=== PATIENT | male | born 1935 | race Caucasian/White ===

== ENCOUNTER 2017-05-22 04:25 | Inpatient (IN) | payer MEDICARE, SELFPAY ==
[2017-05-22] VITALS (20 sets, daily range): BP systolic 111–193; BP diastolic 62–86; PULSE 60–68; RESP 16–23; TEMP 36.2–36.9; O2SAT 94–97; BMI 30.4; BMI 29.8
--- NOTE | 2017-05-22 04:29 | EKG12_ITS ---
Test Reason : SOB Blood Pressure : / mmHG Vent. Rate : 059 BPM Atrial Rate : 059 BPM P-R Int : 256 ms QRS Dur : 124 ms QT Int : 468 ms P-R-T Axes : 000 021 024 degrees QTc Int : 463 ms Sinus bradycardia with 1st degree A-V block Septal infarct , age undetermined Abnormal ECG Confirmed by PILAR PANDA ([id number]), associate entertainment editor FARRAH ALVAREZ ([id number] on 05/24/2017 11:55:49 AM Referred By: KATIE Confirmed By:PILAR PANDA
--- NOTE | 2017-05-22 04:29 | RAD_ITS ---
STUDY: X-RAY CHEST REASON FOR EXAM: Male, 81 years old. Shortness of breath TECHNIQUE: PA and lateral COMPARISON: May 21, 2017 FINDINGS: There is bilateral perihilar pulmonary edema. There are NO effusions or pneumothoraces. Heart is borderline enlarged. Normal mediastinum and car. Normal visualized pulmonary arteries. Normal visualized aortic arch and descending thoracic aorta. Normal visualized thoracic spine. Normal visualized ribs, clavicles, and shoulders. There is no demonstrated abnormality of the visualized soft tissue structures of the upper abdomen. RAD/Chest PA and Lateral IMPRESSION: There is bilateral perihilar pulmonary edema. There are NO effusions or pneumothoraces. Heart is borderline enlarged. Electronically Signed: Arnulfo Marshall MD at 5:29 EST , Service support ,
--- NOTE | 2017-05-22 04:36 | ED.DCSUM_ITS ---
- ER Visit Summary Date of Service: 05/22/17 Chief Complaint: Shortness of breath History of Present Illness: The patient is a 81 M with history of hypertension, chronic kidney disease, prior NSTEMI, and CHF presents to the emergency department shortness of breath. Patient was actually seen here last night for similar symptoms. He was off of his antihypertensives for a while but his lisinopril was just restarted. Last night, per review of the records, the patient had some dizziness and mild dyspnea. His evaluation here was unremarkable. He was able to ambulate without hypoxia. Tonight, the patient woke with worsening shortness of breath. Squad was called. On squad arrival, the patient did have a pulse ox between 88 and 90% on room air. He denies cough. He denies any fevers or chills. He states he has been compliant with his medications. He has had no chest pain. Physical Examination: Vital signs reviewed General: Well-nourished, well-developed Head: Normocephalic, atraumatic Eyes: Pupils equal and reactive, extraocular muscles intact Neck, supple, no lymphadenopathy Heart: Regular rate and rhythm Respiratory: No distress, diminished in the bases without wheezing or rhonchi Abdomen: Soft, nontender, nondistended, no peritoneal signs Back: Nontender Extremities: Nontender, no edema, no cords Skin: Normal color no rash Neuro: Alert and oriented, no focal or lateralizing deficits Test Results: EKG demonstrates sinus rhythm with first-degree AV block. No acute ischemic change. Chest x-ray shows evidence of pulmonary edema. No effusion. Screening labs relatively unremarkable. Emergency Department Course and Treatment: Patient presents with shortness of breath. It has been waking him from sleep. I was actually able to get more history from the daughter when she arrived. This is the same it happened last night. He woke suddenly and felt like he could not breathe. He also is complaining of some dizziness. The patient does have a history of cardiomyopathy and NSTEMI. He was recently restarted on his lisinopril for his blood pressure. He denies any complaints, but I do feel the patient likely has some underlying dementia. He has really limited short-term recall. His EKG does not show anything ischemic. His cardiac enzymes continue to be normal. His chest x-ray shows increasing cephalization and more pulmonary edema today. With the patient's paroxysmal nocturnal dyspnea, worsening CHF, and borderline hypoxia I do feel that observation would be in his best interest. My suspicion is that he is likely having acute hypertensive spikes putting him into congestive heart failure. He will be started on low-dose Lasix and be admitted. As the patient does see Dr. Rosario in the outpatient, I did speak with Dr. Hong to make him aware of the patient's presentation. Treatment Plan: [] Disposition: Admission Impression: 1. New onset CHF 2. Dyspnea This note was generated with [employer] dictation software. It may contain incorrect words, spelling, and punctuation that were not noted in review of the chart prior to signing ED Disposition - Plan for ED Patient: Disposition: Acute Care Hospital [facility] Chief Complaint: Shortness of Breath
[2017-05-22 04:48] LABS: Absolute Lymphocyte Count 1.06 X10^3/ul (0.83-4.51); Absolute Neutrophil Count 4.1 X10^3/uL (2.0-7.7); Basophil# 0.01 X10^3/uL; Basophil% 0.2 % (0-1); Eosinophil# 0.18 X10^3/uL; Eosinophils% 3.1 % (0-5); Hematocrit 39.5 % (40-54); Hemoglobin 12.5 g/dl (13.0-16.5); Lymphocyte # 1.06 X10^3/ul (4.0); Lymphocyte % 18.2 % (19-41); Mean Corp Hgb Conc 31.6 g/gl (32-36); Mean Corpuscular Hgb 32.3 pg (27.0-32.0); Mean Corpuscular Volume 102.1 fL (80-94); Mean Platelet Vol. 11.5 fl (6.2-12.0); Monocyte# 0.47 X10^3/uL; Monocyte% 8.1 % (0-10); Neutrophil # 4.07 X10^3/uL (2.7-7.7); Neutrophil % 70.1 % (47-70); Platelet Count 150 K/mm3 (150-450); RBC Distribution Width CV 14.3 % (11.6-14.6); RBC Distribution Width SD 53.1 fl (35.1-43.9); Red Blood Count 3.87 M/mm3 (4.6-6.2); White Blood Count 5.8 K/mm3 (4.4-11.0)
[2017-05-22 04:50] LABS: POSITIVE COUNT NO; POSITIVE DIFFERENTIAL NO; POSITIVE MORPHOLOGY NO
[2017-05-22 05:05] LABS: Anion Gap 9 (5-15); BUN 47 mg/dL (7-18); BUN/Creat Ratio 16.4 RATIO (10-20); Calcium,Total 8.9 mg/dL (8.5-10.1); Chloride 107 mmol/L (98-107); Creatinine, Serum 2.87 mg/dL (0.70-1.30); EST Glomerular Filtration Rate 23 mL/min (>60); Est Glom Filt Rate - Afr Amer 27 mL/min (>60); Estimated Creatinine Clearance 19.19 ml/min; Glucose 163 mg/dL (70-110); Potassium 4.8 mmol/L (3.5-5.1); Sodium Level 140 mmol/L (136-145)
[2017-05-22 05:23] LABS: BNP,B-Type NATRIURETIC PEPTIDE 166.8 pg/mL (0-100)
[2017-05-22] MEDS: Furosemide 40 MG/4 ML Vial IV ×3 (05:41→17:54)
--- NOTE | 2017-05-22 06:06 | HP.PCM_ITS ---
Problem List (1) Dementia Status: Chronic (2) Hypertension Status: Chronic Qualifiers: Hypertension type: unspecified Qualified Code(s): I10 - Essential (primary ) hypertension (3) Renal failure Status: Chronic Qualifiers: Renal failure chronicity: unspecified chronicity Qualified Code(s): N19 - Unspecified kidney failure (4) Generalized weakness Status: Chronic (5) CHF (congestive heart failure) Status: Acute Qualifiers: Congestive heart failure type: unspecified Congestive heart failure chronicity: acute on chronic Qualified Code(s): I50.9 - Heart failure, unspecified History of Present Illness Date of Admission: 05/22/17 Chief Complaint: shortness of breath The patient is a 81 year old male patient with a significant past medical history of hypertension, chronic kidney disease, prior NSTEMI, and CHF presents to the ER for the second day in a row with shortness of breath. On arrival his pulse ox was 88%. He has not had an echocardiogram in over a year. He is followed by Dr Rosario. The patient is a poor historian due to dementia and his daughter had just stepped out of the room at the time of my evaluation so much of what I have learned comes from the chart and the ER physician. He denies cough or fevers and chills. He states he takes his medications as prescribed and denies chest pain presently. He was restarted on lisinopril recently for blood pressure. Of not is his creatine 2.87 of and his BNP of 166. Chest X-ray reveals bilateral pulmonary edema and he now requires oxygen to maintain his pulse oxygenation in the 90% range. He will be admitted for congestive heart failure. Past Medical History Past Medical History (Chronic Problems): Chronic Problems Generalized weakness (Chronic) Dementia (Chronic) Hypertension (Chronic) Renal failure (Chronic) Allergies cefadroxil Allergy (Unknown, Verified 05/22/17 04:31) Unknown fexofenadine HCl [From Rosa] Allergy (Unknown, Verified 05/22/17 04:31) Unknown erythromycin base Allergy (Verified 05/22/17 04:31) Unknown Home Medications: Ambulatory Orders Medication Instructions Recorded Simvastatin 40 mg PO QHS 08/02/14 Aspirin [Aspirin, Baby] 81 mg PO DAILY@0800 11/25/14 Amiodarone HCl [Cordarone] 200 mg PO DAILY 01/20/16 Ascorbic Acid [Vitamin C] 250 mg PO DAILY 11/03/17 Cholecalciferol (Vitamin D3) 4,000 unit PO DAILY 03/09/17 [Vitamin D3] Insulin Detemir [Levemir FlexPen] 22 - 30 units SC QHS 03/09/17 L.acidoph,Paracasei, B.lactis 1 each PO DAILY 03/09/17 [Probiotic] Ferrous Sulfate 2 tab PO DAILY 04/27/17 Pantoprazole Sodium [Protonix] 40 mg PO DAILY 04/27/17 Insulin Lispro [Humalog] See Protocol 05/21/17 Lisinopril [Zestril] 5 mg PO DAILY 05/21/17 Surgical History: appendectomy, - - Right leg vascular surgery-type unknown Smoking Status: Never smoker - *Family History Maternal History Items: No pertinent history Paternal History Items: No pertinent history Review of Systems Constitutional: Denies: Chills, Fever, Weight Change HEENT: Denies: Head Aches, Sinus Congestion, Sinus Drainage Cardiovascular: Denies: Chest Pain, Palpitations Respiratory: Reports: Shortness of breath at rest. Denies: Cough, Sputum production Gastrointestinal: Denies: Abdominal Pain, Nausea, Vomiting Genitourinary: Denies: Dysuria Musculoskeletal: Denies: Joint Pain, Joint Tenderness Skin: Denies: Rash, Wounds Neurological: Reports: Confusion, - - memory impaired. Denies: Focal weakness, Numbness, Tingling Psychiatric: Denies: Anxiety, Depression, Homicidal Ideations, Suicidal Ideations Hematologic/ Lymphatic: Denies: Easy Bruising, Easy Bleeding VTE Information - Inpt Only VTE Present on Admission: No VTE Mechan Device Prophylaxis: SCD's VTE Pharm Prophylaxis ordered?: No - Physical Exam General: Alert, Cooperative, Confused HEENT: Atraumatic, Normocephalic Neck: Supple Lungs: No rhonchi, No wheeze, No rales, Diminished Cardiovascular: Regular rate, Regular Rhythm, Normal S1, Normal S2, No murmurs Abdomen: Bowel Sounds Present, Soft, Non Tender, Obese Extremities: Edema - trace lower extremity edema Skin: No rashes, No breakdown Musculoskeletal: No Tenderness to Palpation of Joints or Extremities Neurological: Neuro grossly intact Psych/Mental Status: Normal Affect, Appropriate Vital Signs Temp Pulse Resp BP Pulse Ox 97.2 F L 60 17 176/72 H 97 05/22/17 04:26 05/22/17 05:46 05/22/17 05:46 05/22/17 05:46 05/22/17 05:46 Oxygen Flow Rate 2 Oxygen Delivery Method Nasal Cannula Weight: 194 lb 7.163 oz Body Mass Index (BMI) 30.4 Finger Stick Blood Glucose 215 Laboratory Tests Past 24 Hrs 05/22/17 05/22/17 05/22/17 04:30 04:30 04:30 WBC 5.8 RBC 3.87 L Hgb 12.5 L Hct 39.5 L MCV 102.1 H MCH 32.3 H MCHC 31.6 L RDW 14.3 RDW Differential 53.1 H Plt Count 150 MPV 11.5 Immature Gran % (Auto) 0.300 Neut % (Auto) 70.1 H Lymph % (Auto) 18.2 L Bent % (Auto) 8.1 Eos % (Auto) 3.1 Baso % (Auto) 0.2 Absolute Neuts (auto) 4.1 Absolute Lymphs (auto) 1.06 Total Counted Not Reportable Sodium 140 Potassium 4.8 Chloride 107 Carbon Dioxide 24.0 Anion Gap 9 BUN 47 H Creatinine 2.87 H Estim Creat Clear Calc 19.19 Est GFR (MDRD) Af Amer 27 L Est GFR (MDRD) Non-Af 23 L BUN/Creatinine Ratio 16.4 Glucose 163 H Calcium 8.9 Troponin I < 0.02 B-Natriuretic Peptide 166.8 H Assessment/Plan Assessment - Congestive Heart Failure Chronic conditions - hypertension - chronic kidney disease - prior NSTEMI - Severe dementia Plan - admit to Progressive Care Unit - consult Dr Rosario - Echocardiogram in AM - cbc,bmp,bnp in am (next day) - oxygen per protocol - continue lasix 40mg bid - continue routine home medications - consider dc gay in lieu of renal failure perhaps coreg might be a better choice - SCDs for DVT prophylaxis Code Visit Inpatient E&M: 14102 Init Hosp L3
[2017-05-22 07:24] LABS: AST(SGOT) 31 U/L (15-37); Alanine Aminotransfer ALT/SGPT 62 U/L (12-78); Albumin, Serum 3.1 g/dL (3.4-5.0); Alkaline Phosphatase 91 U/L (45-117); Bilirubin, Direct 0.11 mg/dL (0.00-0.30); Globulin 3.9 g/dL (2.2-4.2); Magnesium 2.3 mg/dL (1.6-2.6)
[2017-05-22 08:11] LABS: Bedside Glucose 121 mg/dL (70-110)
[2017-05-22] MEDS: Aspirin 81 MG TAB.CHEW PO (08:12)
--- NOTE | 2017-05-22 09:06 | CON.PCM_ITS ---
Problem List (1) Shortness of breath Status: Acute (2) NSTEMI (non-ST elevated myocardial infarction) Status: Acute (3) CHF (congestive heart failure) Status: Acute Qualifiers: Congestive heart failure type: unspecified Congestive heart failure chronicity: acute on chronic Qualified Code(s): I50.9 - Heart failure, unspecified (4) Hypertension Status: Chronic Qualifiers: Hypertension type: unspecified Qualified Code(s): I10 - Essential (primary ) hypertension (5) Renal failure Status: Chronic Qualifiers: Renal failure chronicity: unspecified chronicity Qualified Code(s): N19 - Unspecified kidney failure Reason for Consult Date of Consultation: 05/22/17 Reason for Consultation: Dyspnea on exertion, hypertension, chronic renal insufficiency, LV dysfunction, abnormal EKG. 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 At that time he required urgent intubation and ventilation due to sepsis, anemia, non-ST elevation myocardial infarction with a peak troponin of 5.87. At that time an echocardiogram was done which demonstrated an EF of 35% with anterolateral hypokinesis and no previous echocardiograms. Given his chronic renal insufficiency, anemia, and after long discussion with his family no catheterization was performed and the patient was treated medically and transferred to TCU at that time. Patient has been seen in the office and most recently was seen in 10/09/16. A nuclear stress test to evaluate for ischemia was performed after his discharge from the hospital which suggested possible inferior posterior ischemia versus motion artifact and suggested an ejection fraction of around 21%. Apparently the patient has had significant hypertension and was recently placed on lisinopril 5 mg daily by his PCP last . Over the weekend the patient had developed progressively worsening shortness of breath and dyspnea on exertion. He actually visited the ER yesterday, and was subsequently sent home. He then returned last evening due to progressive shortness of breath, lightheadedness and dizziness. Chest x-ray demonstrated bilateral pulmonary edema of a mild to moderate degree. The patient also complains of lower extremity edema. He denies any chest pain, angina, presyncope or syncope but did complain of lightheadedness and some dizziness. He also complained of worsening lower extremity edema. Patient had been on amiodarone in the past for rate and rhythm control. His EKG on admission showed sinus bradycardia with first- degree AV block, old inferior and anteroseptal wall myocardial infarction, no acute changes noted. Troponins have been negative ?2 and hemoglobin is stable. Telemetry is negative for arrhythmias. Patient is a lifelong non-smoker but used to work as a rodríguez as well as in construction. He has never had pulmonary function tests. [] Past Medical History Allergies/Adverse Reactions: Allergies cefadroxil Allergy (Unknown, Verified 05/22/17 04:31) Unknown fexofenadine HCl [From Rosa] Allergy (Unknown, Verified 05/22/17 04:31) Unknown erythromycin base Allergy (Verified 05/22/17 04:31) Unknown Home Medications: Ambulatory Orders Medication Instructions Recorded Simvastatin 40 mg PO QHS 08/02/14 Aspirin [Aspirin, Baby] 81 mg PO DAILY@0800 11/25/14 Amiodarone HCl [Cordarone] 200 mg PO DAILY 01/20/16 Ascorbic Acid [Vitamin C] 250 mg PO DAILY 03/09/17 Cholecalciferol (Vitamin D3) 4,000 unit PO DAILY 03/09/17 [Vitamin D3] Insulin Detemir [Levemir FlexPen] 22 - 30 units SC QHS 03/09/17 L.acidoph,Paracasei, B.lactis 1 each PO DAILY 03/09/17 [Probiotic] Ferrous Sulfate 2 tab PO DAILY 04/27/17 Pantoprazole Sodium [Protonix] 40 mg PO DAILY 04/27/17 Insulin Lispro [Humalog] See Protocol 05/21/17 Lisinopril [Zestril] 5 mg PO DAILY 05/21/17 Past Medical History (Chronic Problems): Chronic Problems Generalized weakness (Chronic) Dementia (Chronic) Hypertension (Chronic) Renal failure (Chronic) Surgical History: appendectomy, - - Right leg vascular surgery-type unknown - *Family History Maternal History Items: No pertinent history Paternal History Items: No pertinent history Smoking Status: Never smoker Review of Systems - Review of Systems General: Denies: Fever, Night Sweats, Fatigue Cardiovascular: Reports: Shortness of Breath with Exertion, Lightheadedness, Dizziness. Denies: Chest Discomfort, Shortness of Breath, Orthopnea, PND, Peripheral Edema, Palpitations, Near Syncope, Syncope Respiratory: Denies: Cough, Sputum Production, Hemoptysis Gastrointestinal: Denies: Hematemesis, Hematochezia, Melena Genitourinary: Denies: Dysuria, Hematuria Skin: Denies: Rash Subjectve: Patient laying in bed, no acute distress. Objective: Vital Signs Temp Pulse Resp BP Pulse Ox 97.9 F 60 20 H 193/86 H 96 05/22/17 07:09 05/22/17 08:12 05/22/17 07:09 05/22/17 08:12 05/22/17 07:55 Oxygen Flow Rate 2 Oxygen Delivery Method Nasal Cannula Weight: 184 lb 11.958 oz Body Mass Index (BMI) 29.8 Intake and Output for Last 24 Hours 05/20/17 05/21/17 05/22/17 23:59 23:59 23:59 Output Total 1000 / 1000 Balance -1000 / -1000 General: Awake, Alert, Oriented x 3 HEENT: PERRL, EOMI, Sclera Non Icteric Neck: Supple, Good ROM, No Lymph Node Enlargement Lungs: Rales - Malcom Bases Cardiovascular: Regular Rhythm, Normal S1, Normal S2, No Murmurs, No Rubs, No Gallops Vascular: No Carotid Bruits, Normal Femoral Pulses, Normal Radial Pulses, Normal Dorsalis Pedal Pulse, Normal Posterior Tibial Pulses Abdomen: Bowel Sounds Present, Soft, Non Tender, No HSM, No Organomegaly Extremities: No Cyanosis, No Clubbing, Bilateral Edema +1 Neurological: No Focal Motor or Sensory Deficit 05/22/17 08:05: Troponin I < 0.02 Rhythm: As above EKG: As above ECHO: Pending Stress Test: Cardiac Cath: PCI: CT Surgery: Holter monitor: EPS: PPM: CXR: Chest CT Scan: Assessment/Plan 1. Congestive heart failure: The patient has progressively worsening hypertensive and LV dysfunction induced dyspnea on exertion, shortness of breath , and evidence of pulmonary edema on physical exam as well as chest x-ray. Patient has chronic renal insufficiency with an estimated GFR of less than 20, and uncontrolled hypertension. Although the patient's symptoms began to occur after inducing low-dose lisinopril last , he has still remained hypertensive over the weekend with blood pressures in the systolic range between 150 and 170 per his daughter. At this point I believe the patient's renal insufficiency and LV dysfunction are materially impacting on the patient's pulmonary pressures. I recommend that he undergo a repeat echocardiogram to define his LV function, valvular status and pulmonary pressures. I am in agreement with gentle IV diuresis with Lasix 40 mg IV twice daily until the patient has reached his dry weight. Consultation may want to be considered with a renal physician regarding his renal insufficiency as the patient may be approaching dialysis numbers given his low GFR. In addition given his renal insufficiency I would recommend discontinuation of lisinopril and initiation of a combination of Imdur/hydralazine for better hypertensive control and afterload reduction. Patient is not on a beta-castillo at this time given his bradycardia, and amiodarone is being used as his beta- castillo. Patient has never had pulmonary function test to my knowledge and he is a lifelong non-smoker. 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 2. Coronary artery disease: The patient has a history of GI bleeding in 2014 and is currently on a baby aspirin tolerating this well. His hemoglobin is stable. At the time of his previous admission I had a long and thorough discussion with the patient and family regarding catheterization to identify possible areas of correctable coronary artery disease and it was declined at that time. In addition the patient is a Gnosticism. I will revisit this conversation with him once he has been medically optimized. 3. Hyperlipidemia: Recommend obtaining a fasting lipid profile. Given his risk factors his LDL should be less than 70. Continue Zocor. 4. Thank you very much for the opportunity to put dissipate in the cardiac care of your patient. Consultation time took place between 830 and 9:03 AM. Code Visit Inpatient E&M: 87764 Init Hosp L2
[2017-05-22 09:49] LABS: Cholesterol 118 mg/dL (200); High Density Lipoprotein 63 mg/dL; Thyroid Stim Hormone (TSH) 2.73 uIU/mL (0.358-3.74); Triglycerides 59 mg/dL; Very Low Density Lipoprotein 12 mg/dL (5-40)
[2017-05-22] MEDS: Ascorbic Acid 500 MG Tablet 250 MG PO (10:27)
[2017-05-22] MEDS: Amiodarone 200 MG Tablet PO (10:31)
[2017-05-22] MEDS: Isosorbide Mononitrate 30 MG Tablet PO (10:31)
[2017-05-22] MEDS: Pantoprazole Sodium 40 MG Tablet PO (10:32)
[2017-05-22 11:41] LABS: Bedside Glucose 201 mg/dL (70-110)
[2017-05-22] MEDS: Ipratropium/Albuterol Sulfate 3 ML AMPUL.NEB INHALATION (13:01)
--- NOTE | 2017-05-22 14:04 | CASEMGMT ---
RN ANDRE told SW that patient's daughter was asking about patient going to TCU. SW called [facility] in TCU and she would have a bed for patient. SW let patient's daughter know this information. SW to follow for d/c to TCU pending pre-cert and patient being medically ready. Plan: TCU pending pre-cert and patient being medically ready Isabel MOORE MSW
--- NOTE | 2017-05-22 14:25 | CASEMGMT ---
Face to Face with patient for initial transition planning/care coordination assessment. RN ANDRE introduced self and role at [facility], pt/daughter voice understanding and consent to assessment at this time. Pt sitting up in chair at this time in no distress. Pt A/O x1 at this time and unable to answer questions appropriately at this time. Care providers, pharmacy, and demographics verified. See attached link. Pt/daughter voice no further concerns/needs at this time. Advised pt/daughter to ask for CM if any further questions/concerns/needs arise, voices understanding. CM to follow for any further discharge planning/needs. PLAN: LINDA Brady RN, CM
--- NOTE | 2017-05-22 15:22 | PCM.PROGNOTE ---
Patient Problems: Active and Suspected Problems Shortness of breath (Acute) Subjective: Patient admitted this morning with acute CHF exacerbation. He reports he is already feeling less short of breath. He does not normally use oxygen at home, currently stable on 2 L/min oxygen via nasal cannula. He denies cough. No chest pain or palp. He denies fevers or chills. He has not noticed any swelling of his legs recently. He does admit to a history of CHF. He denies any other lung disease including asthma COPD, chronic bronchitis, or otherwise. He denies any difficulty emptying his bladder completely. No dysuria. He seems somewhat confused this morning, he did not remember seeing the rocket engine component mechanic this morning for who he was. The patient states he follows with Dr. Hawk for nephrology however has not seen her in several years. - Physical Exam General: Alert, Oriented x3, Cooperative HEENT: Atraumatic, PERRLA, EOMI, Normocephalic Neck: Supple, No JVD, Negative Carotid Bruits Lungs: Normal air movement, Rales - Very faint, fine crackles bilateral lower monahan Cardiovascular: Regular rate, No murmurs Abdomen: Bowel Sounds Present, Soft, Non Tender Extremities: Capillary Refill Less than 3 Seconds, Edema - He has puffy edema bilateral feet, very little present in the distal leg. Skin: No rashes, No breakdown Musculoskeletal: No Tenderness to Palpation of Joints or Extremities Neurological: Cranial nerves II-XII grossly intact Psych/Mental Status: Normal Affect, Appropriate Vital Signs Temp Pulse Resp BP Pulse Ox 98.0 F 64 16 139/63 H 97 05/22/17 14:00 05/22/17 14:27 05/22/17 14:00 05/22/17 14:27 05/22/17 14:00 Oxygen Flow Rate 2 Oxygen Delivery Method Nasal Cannula Weight: 83.8 kg Body Mass Index (BMI) 29.8 Intake and Output for Last 24 Hours 05/20/17 05/21/17 05/22/17 23:59 23:59 23:59 Intake Total Output Total 1000 / 1000 Balance -986 / -986 Microbiology Past 72 Hours 05/22/17 07:55 Influenza Types A,B Direct FA (ROBERTO) - Final Mucosa - Nose Laboratory Tests Past 24 Hrs 05/22/17 05/22/17 05/22/17 08:05 08:05 08:05 Troponin I < 0.02 Triglycerides 59 Cholesterol 118 LDL Cholesterol 43 VLDL Cholesterol 12 HDL Cholesterol 63 Vitamin B12 Pending Folate TSH 2.73 05/22/17 05/22/17 08:05 12:25 Troponin I < 0.02 Triglycerides Cholesterol LDL Cholesterol VLDL Cholesterol HDL Cholesterol Vitamin B12 Folate 16.50 TSH POC Glucose 05/22/17 05/22/17 11:30 07:52 POC Glucose 201 H 121 H Assessment/Plan Active and Suspected Problems Shortness of breath (Acute) 1. Acute CHF exacerbation, subtype unclear-echo pending. Cardiology following. Continue IV Lasix. Patient's lisinopril was discontinued at admission with concerns for his underlying renal disease. He is not on a beta-castillo, will defer with acute exacerbation, and cardiology notes not advised given his bradycardia and current amiodarone therapy. Continue hydralazine, Imdur. -He appears clinically improved with little SOB reported today and mild edema in his feet only. -Chest x-ray demonstrates bilateral perihilar pulmonary edema, no effusions or pneumothoraces, heart is borderline enlarged. -Troponin negative ?3 -BNP slightly elevated at 166.8 -TSH normal 2. CKD stage IV-does not appear to be significantly above his baseline. If he worsens with diuresis will consult Dr. Hawk. He will need to follow-up with her at discharge as he has not seen her in the office in years. 3. History of CAD-history of non-ST segment elevation myocardial infarction. Will continue new aspirin, atorvastatin. LDL at goal, 43 4. Hypertension-stable 5. Type 2 diabetes-add sliding scale insulin coverage. Per his home meds he is only on a sliding scale at home. 6. Macrocytic anemia, mild-check B12 and folate. DVT prophylaxis: Add heparin This patient was seen by Mckinley Morfin PA-C under the supervision of Doctor Gabriel.
[2017-05-22 16:01] LABS: Bedside Glucose 284 mg/dL (70-110)
--- NOTE | 2017-05-22 18:12 | PCM.CONS.R ---
Consultation - Renal 05/22/17 PCP/ Referring MD: Requesting physician: Dr. Sneed Primary care physician: Dr. Wiliam Lieberman Reason for Consultation:: Acute kidney injury on chronic kidney disease stage IV - History of Present Illness History of Present Illness: The patient is a 81 year old M past history of coronary artery disease, hypertension, and type 2 diabetes mellitus is admitted with 2 days history of illness of breath. The patient has a history of failure with reduced ejection fraction, and he has been seen by Dr. Rosario in the past. His ejection fraction is reported at 35%. The patient denies current chest pain or pressure. There is no shortness of breath at rest. In fact, his breathing is improved since admission with diuresis. Patient denies nausea, vomiting, anorexia or diarrhea prior to the onset of his shortness of breath. Does complain of some tightness around the ankle although there has been no diego edema. Patient denies recent exposure to IV contrast or chronic use of NSAIDs. Patient denies lower urinary tract symptoms such as urinary frequency, urgency or incontinence. Creatinine on admission on 05/21/2017 is 2.99 g/dL. Creatinine today is 2.87 mg/dL despite diuresis. - Allergies Allergies: Allergies cefadroxil Allergy (Unknown, Verified 05/22/17 04:31) Unknown fexofenadine HCl [From Rosa] Allergy (Unknown, Verified 05/22/17 04:31) Unknown erythromycin base Allergy (Verified 05/22/17 04:31) Unknown - Current Medications Current Medications: Current Medications Acetaminophen (Tylenol) 650 mg PO Q6H PRN PRN PRN Reason: Mild Pain (scale 0-3)/T>100.7 Albuterol/Ipratropium (Duoneb) 3 ml INHALATION Q6HWA.RT [facility] Last Admin: 05/22/17 13:01 Dose: 3 ml Amiodarone HCl (Cordarone) 200 mg PO DAILY [facility] Last Admin: 05/22/17 10:31 Dose: 200 mg Ascorbic Acid (Vitamin C) 250 mg PO DAILYCM [facility] Last Admin: 05/22/17 10:27 Dose: 250 mg Aspirin (Aspirin, Baby) 81 mg PO DAILY@0800 [facility] Last Admin: 05/22/17 08:12 Dose: 81 mg Atorvastatin Calcium (Lipitor) 20 mg PO QHS [facility] Cholecalciferol (Vitamin D) 4,000 unit PO DAILYCM [facility] Last Admin: 05/22/17 10:29 Dose: 4,000 unit Dextrose (D50w Syringe) 0 gm IV X1 PRN; Protocol PRN Reason: Hypoglycemia Furosemide (Lasix) 40 mg IV BIDLX [facility] Last Admin: 05/22/17 17:54 Dose: 40 mg Glucagon () 1 mg IM .X1 PRN PRN Reason: Hypoglycemia Heparin Sodium (Porcine) () 5,000 units SC BID [facility] Hydralazine HCl (Apresoline) 25 mg PO TID [facility] Last Admin: 05/22/17 14:27 Dose: 25 mg Insulin Aspart (Novolog Flexpen (Bkc)) 0 units SC ACHS [facility] PRN Reason: Protocol Last Admin: 05/22/17 16:14 Dose: 4 u Isosorbide Mononitrate (Imdur) 30 mg PO DAILY [facility] Last Admin: 05/22/17 10:31 Dose: 30 mg Magnesium Hydroxide (Milk Of Magnesia) 30 ml PO DAILY PRN PRN Reason: Constipation Pantoprazole Sodium (Protonix) 40 mg PO DAILY [facility] Last Admin: 05/22/17 10:32 Dose: 40 mg Sodium Chloride () 5 - 30 ml IV UD PRN PRN Reason: SALINE FLUSH - Past Medical History Past Medical History (Chronic Problems): Chronic Problems Generalized weakness (Chronic) Dementia (Chronic) Hypertension (Chronic) Renal failure (Chronic) - Past Surgical History Surgical History: appendectomy, - - Right leg vascular surgery-type unknown - Social History Smoking Status: Never smoker - Family History Maternal History Items: No pertinent history Paternal History Items: No pertinent history Review of Systems Constitutional: Denies: Anorexia, Chills, Fever, Weight Change Eyes: Denies: Blurred vision, Pain, Redness, Vision Change HEENT: Denies: Head Aches, Sinus Congestion, Sinus Drainage Cardiovascular: Reports: Edema. Denies: Chest Pain, Palpitations Respiratory: Reports: Shortness of Breath, Shortness of breath upon exertion Gastrointestinal: Denies: Abdominal Pain, Nausea, Vomiting Genitourinary: Denies: Dysuria Musculoskeletal: Denies: Joint Pain, Joint Tenderness Skin: Denies: Rash, Wounds Neurological: Denies: Numbness, Tingling, Focal weakness Psychiatric: Denies: Anxiety, Depression, Homicidal Ideations, Suicidal Ideations Hematologic/ Lymphatic: Denies: Easy Bruising, Easy Bleeding Patient Problems: Active and Suspected Problems Shortness of breath (Acute) - Physical Exam General: Alert, Oriented x3 HEENT: Atraumatic, Normocephalic Oral: Moist Mucosa Neck: Supple, No JVD Lungs: Clear to auscultation - Anteriorly Cardiovascular: Normal S1, Normal S2, No murmurs, No rub noted Abdomen: Bowel Sounds Present, Soft, Non Tender Extremities: No clubbing, No cyanosis, No edema Vital Signs Temp Pulse Resp BP Pulse Ox 98.0 F 64 16 139/63 H 97 05/22/17 14:00 05/22/17 15:06 05/22/17 14:00 05/22/17 14:27 05/22/17 14:00 Oxygen Flow Rate 2 Oxygen Delivery Method Nasal Cannula Weight: 83.8 kg Body Mass Index (BMI) 29.8 Intake and Output for Last 24 Hours 05/20/17 05/21/17 05/22/17 23:59 23:59 23:59 Intake Total 494 / 494 Output Total 1670 / 1670 Balance -1176 / -1176 Microbiology Past 72 Hours 05/22/17 07:55 Influenza Types A,B Direct FA (ROBERTO) - Final Mucosa - Nose Laboratory Tests Past 24 Hrs 05/22/17 05/22/17 05/22/17 08:05 08:05 08:05 Troponin I < 0.02 Triglycerides 59 Cholesterol 118 LDL Cholesterol 43 VLDL Cholesterol 12 HDL Cholesterol 63 Vitamin B12 Pending Folate TSH 2.73 05/22/17 05/22/17 08:05 12:25 Troponin I < 0.02 Triglycerides Cholesterol LDL Cholesterol VLDL Cholesterol HDL Cholesterol Vitamin B12 Folate 16.50 TSH POC Glucose 05/22/17 05/22/17 05/22/17 15:50 11:30 07:52 POC Glucose 284 H 201 H 121 H Assessment/Plan Active and Suspected Problems Shortness of breath (Acute) 1. Acute kidney injury on chronic kidney disease stage IV. Patient has underlying chronic kidney disease with prior creatinine of 2.9-3.0 mg/dL in the past year. As far as I can tell, there has been no prior workup for etiology of chronic kidney disease. My suspicion is that the patient has possible diabetic nephropathy or nephrosclerosis. I will check ultrasound of the kidneys to assess kidney size. I will check urinalysis along with urine protein to creatinine ratio. The current renal function is likely at baseline for this patient. Creatinine did not markedly increase with diuresis. Given the presentation with heart failure and pulmonary edema, there is no need to stop diuresis. I agree with stopping SUSANA inhibitor for now. Renal function will be monitored. There is no need for kidney replacement therapy at this point. 2. Hypertension. Blood pressure is reasonably controlled without the use of SUSANA inhibitor. Monitor blood pressure for now on current medications. 3. Heart failure with reduced ejection fraction in a patient with known coronary artery disease. The patient is followed by cardiology. He is on hydralazine/nitrate instead of SUSANA inhibitor because of acute kidney injury. I agree with the current treatment. There is no need to stop diuresis. We will be following renal function while the patient is being diuresed. 4. Type 2 diabetes mellitus. Glycemic control is as per hospital medicine service.
--- NOTE | 2017-05-22 18:22 | CON.PCM_ITS ---
Consultation - Renal 05/22/17 PCP/ Referring MD: Requesting physician: Dr. Sneed Primary care physician: Dr. Wiliam Lieberman Reason for Consultation:: Acute kidney injury on chronic kidney disease stage IV - History of Present Illness History of Present Illness: The patient is a 81 year old M past history of coronary artery disease, hypertension, and type 2 diabetes mellitus is admitted with 2 days history of illness of breath. The patient has a history of failure with reduced ejection fraction, and he has been seen by Dr. Rosario in the past. His ejection fraction is reported at 35%. The patient denies current chest pain or pressure. There is no shortness of breath at rest. In fact, his breathing is improved since admission with diuresis. Patient denies nausea, vomiting, anorexia or diarrhea prior to the onset of his shortness of breath. Does complain of some tightness around the ankle although there has been no diego edema. Patient denies recent exposure to IV contrast or chronic use of NSAIDs. Patient denies lower urinary tract symptoms such as urinary frequency, urgency or incontinence. Creatinine on admission on 05/21/2017 is 2.99 g/dL. Creatinine today is 2.87 mg/ dL despite diuresis. - Allergies Allergies: Allergies cefadroxil Allergy (Unknown, Verified 05/22/17 04:31) Unknown fexofenadine HCl [From Rosa] Allergy (Unknown, Verified 05/22/17 04:31) Unknown erythromycin base Allergy (Verified 05/22/17 04:31) Unknown - Current Medications Current Medications: Current Medications Acetaminophen (Tylenol) 650 mg PO Q6H PRN PRN PRN Reason: Mild Pain (scale 0-3)/T>100.7 Albuterol/Ipratropium (Duoneb) 3 ml INHALATION Q6HWA.RT [facility] Last Admin: 05/22/17 13:01 Dose: 3 ml Amiodarone HCl (Cordarone) 200 mg PO DAILY [facility] Last Admin: 05/22/17 10:31 Dose: 200 mg Ascorbic Acid (Vitamin C) 250 mg PO DAILYCM [facility] Last Admin: 05/22/17 10:27 Dose: 250 mg Aspirin (Aspirin, Baby) 81 mg PO DAILY@0800 [facility] Last Admin: 05/22/17 08:12 Dose: 81 mg Atorvastatin Calcium (Lipitor) 20 mg PO QHS [facility] Cholecalciferol (Vitamin D) 4,000 unit PO DAILYCM [facility] Last Admin: 05/22/17 10:29 Dose: 4,000 unit Dextrose (D50w Syringe) 0 gm IV X1 PRN; Protocol PRN Reason: Hypoglycemia Furosemide (Lasix) 40 mg IV BIDLX [facility] Last Admin: 05/22/17 17:54 Dose: 40 mg Glucagon () 1 mg IM .X1 PRN PRN Reason: Hypoglycemia Heparin Sodium (Porcine) () 5,000 units SC BID [facility] Hydralazine HCl (Apresoline) 25 mg PO TID [facility] Last Admin: 05/22/17 14:27 Dose: 25 mg Insulin Aspart (Novolog Flexpen (Bkc)) 0 units SC ACHS [facility] PRN Reason: Protocol Last Admin: 05/22/17 16:14 Dose: 4 u Isosorbide Mononitrate (Imdur) 30 mg PO DAILY [facility] Last Admin: 05/22/17 10:31 Dose: 30 mg Magnesium Hydroxide (Milk Of Magnesia) 30 ml PO DAILY PRN PRN Reason: Constipation Pantoprazole Sodium (Protonix) 40 mg PO DAILY [facility] Last Admin: 05/22/17 10:32 Dose: 40 mg Sodium Chloride () 5 - 30 ml IV UD PRN PRN Reason: SALINE FLUSH - Past Medical History Past Medical History (Chronic Problems): Chronic Problems Generalized weakness (Chronic) Dementia (Chronic) Hypertension (Chronic) Renal failure (Chronic) - Past Surgical History Surgical History: appendectomy, - - Right leg vascular surgery-type unknown - Social History Smoking Status: Never smoker - Family History Maternal History Items: No pertinent history Paternal History Items: No pertinent history Review of Systems Constitutional: Denies: Anorexia, Chills, Fever, Weight Change Eyes: Denies: Blurred vision, Pain, Redness, Vision Change HEENT: Denies: Head Aches, Sinus Congestion, Sinus Drainage Cardiovascular: Reports: Edema. Denies: Chest Pain, Palpitations Respiratory: Reports: Shortness of Breath, Shortness of breath upon exertion Gastrointestinal: Denies: Abdominal Pain, Nausea, Vomiting Genitourinary: Denies: Dysuria Musculoskeletal: Denies: Joint Pain, Joint Tenderness Skin: Denies: Rash, Wounds Neurological: Denies: Numbness, Tingling, Focal weakness Psychiatric: Denies: Anxiety, Depression, Homicidal Ideations, Suicidal Ideations Hematologic/ Lymphatic: Denies: Easy Bruising, Easy Bleeding Patient Problems: Active and Suspected Problems Shortness of breath (Acute) - Physical Exam General: Alert, Oriented x3 HEENT: Atraumatic, Normocephalic Oral: Moist Mucosa Neck: Supple, No JVD Lungs: Clear to auscultation - Anteriorly Cardiovascular: Normal S1, Normal S2, No murmurs, No rub noted Abdomen: Bowel Sounds Present, Soft, Non Tender Extremities: No clubbing, No cyanosis, No edema Vital Signs Temp Pulse Resp BP Pulse Ox 98.0 F 64 16 139/63 H 97 05/22/17 14:00 05/22/17 15:06 05/22/17 14:00 05/22/17 14:27 05/22/17 14:00 Oxygen Flow Rate 2 Oxygen Delivery Method Nasal Cannula Weight: 83.8 kg Body Mass Index (BMI) 29.8 Intake and Output for Last 24 Hours 05/20/17 05/21/17 05/22/17 23:59 23:59 23:59 Intake Total 494 / 494 Output Total 1670 / 1670 Balance -1176 / -1176 Microbiology Past 72 Hours 05/22/17 07:55 Influenza Types A,B Direct FA (ROBERTO) - Final Mucosa - Nose Laboratory Tests Past 24 Hrs 05/22/17 05/22/17 05/22/17 08:05 08:05 08:05 Troponin I < 0.02 Triglycerides 59 Cholesterol 118 LDL Cholesterol 43 VLDL Cholesterol 12 HDL Cholesterol 63 Vitamin B12 Pending Folate TSH 2.73 05/22/17 05/22/17 08:05 12:25 Troponin I < 0.02 Triglycerides Cholesterol LDL Cholesterol VLDL Cholesterol HDL Cholesterol Vitamin B12 Folate 16.50 TSH POC Glucose 05/22/17 05/22/17 05/22/17 15:50 11:30 07:52 POC Glucose 284 H 201 H 121 H Assessment/Plan Active and Suspected Problems Shortness of breath (Acute) 1. Acute kidney injury on chronic kidney disease stage IV. Patient has underlying chronic kidney disease with prior creatinine of 2.9-3.0 mg/dL in the past year. As far as I can tell, there has been no prior workup for etiology of chronic kidney disease. My suspicion is that the patient has possible diabetic nephropathy or nephrosclerosis. I will check ultrasound of the kidneys to assess kidney size. I will check urinalysis along with urine protein to creatinine ratio. The current renal function is likely at baseline for this patient. Creatinine did not markedly increase with diuresis. Given the presentation with heart failure and pulmonary edema, there is no need to stop diuresis. I agree with stopping SUSANA inhibitor for now. Renal function will be monitored. There is no need for kidney replacement therapy at this point. 2. Hypertension. Blood pressure is reasonably controlled without the use of SUSANA inhibitor. Monitor blood pressure for now on current medications. 3. Heart failure with reduced ejection fraction in a patient with known coronary artery disease. The patient is followed by cardiology. He is on hydralazine/nitrate instead of SUSANA inhibitor because of acute kidney injury. I agree with the current treatment. There is no need to stop diuresis. We will be following renal function while the patient is being diuresed. 4. Type 2 diabetes mellitus. Glycemic control is as per hospital medicine service.
--- NOTE | 2017-05-22 18:26 | US_ITS ---
STUDY: RENAL ULTRASOUND - COMPLETE REASON FOR EXAM: Male, 81 years old. Chronic kidney disease. TECHNIQUE: Ultrasound evaluation of the kidneys was performed with real-time and static holcomb-scale imaging. COMPARISON: None. FINDINGS: RIGHT KIDNEY: with mild renal atrophy. The right kidney measures 8.9 x 4.0 x 5.0 cm. There is a normal cortex of the right kidney. The renal cortex measures 1.5 cm. There is a demonstrated hypoechoic region consistent with renal cyst measuring 1.5 x 1.4 x 1.4 cm. There are no right renal calculi. There is no right hydronephrosis. DISTAL RIGHT URETER: There is non-visualization of the distal right ureter. There is no demonstrated right ureterovesical junction calculus. There is a visualized right ureteral jet. LEFT KIDNEY: Normal location of the left kidney, which is normal in size. The left kidney measures 10.1 x 4.5 x 4.7 cm. There is a normal cortex of the left kidney. The renal cortex measures 1.6 cm. There is no left renal mass or cyst. There are no left renal calculi. There is no left hydronephrosis. DISTAL LEFT URETER: There is non-visualization of the distal left ureter. There is no demonstrated left ureterovesical junction calculus. There is a visualized left ureteral jet. I.V.C.: The IVC is patent. BLADDER: The distended urinary bladder has a volume of 107 ml. The empty urinary bladder has a volume of for ml. There is a normal wall thickness of the distended urinary bladder. There is no demonstrated mass within the urinary bladder. There are no demonstrated bladder calculi. US/Kidney and Bladder IMPRESSION: Right renal sub-2 cm central cyst with otherwise no evidence of acute renal process. Mild right renal atrophic changes. Electronically Signed: Mainor Sabillon DO at 0:01 EST , Service support ,
[2017-05-22] MEDS: Heparin Injection 5,000 UNITS/ML Syringe 5000 UNITS SC (21:57)
[2017-05-22] MEDS: Atorvastatin Calcium 20 MG Tablet PO (21:57)
[2017-05-22 22:16] LABS: Bedside Glucose 239 mg/dL (70-110)
[2017-05-23] VITALS (15 sets, daily range): BP systolic 107–134; BP diastolic 44–66; PULSE 58–73; RESP 16–20; TEMP 36.2–36.6; O2SAT 90–95
[2017-05-23] MEDS: Acetaminophen 325 MG Tablet 650 MG PO ×2 (00:16→21:30)
[2017-05-23] MEDS: traZODone 50 MG Tablet PO ×2 (00:34→21:29)
[2017-05-23 04:36] LABS: Color, Urine Yellow (Yellow); Glucose, Dipstick 50 mg/dl (Normal); Ketone-Dipstick Negative (Negative); Leukocyte Esterase-Dipstick Negative /ul (Negative); Nitrite-Dipstick Negative (Negative); Occult Blood-Urine Negative /ul (Negative); Protein-Dipstick 30 mg/dl (Negative); Urine Bilirubin Dipstick Negative (Negative); Urine Clarity Clear (Clear); Urine Urobilinogen Normal (Normal)
[2017-05-23 05:02] LABS: Protein, Urine (Random) 41.8 mg/dL (<11.9); Protein:Creat Ratio 1713 mg/g CRE (0-200)
[2017-05-23 05:47] LABS: Absolute Lymphocyte Count 0.81 X10^3/ul (0.83-4.51); Absolute Neutrophil Count 4.1 X10^3/uL (2.0-7.7); Basophil# 0.01 X10^3/uL; Basophil% 0.2 % (0-1); Eosinophil# 0.12 X10^3/uL; Eosinophils% 2.1 % (0-5); Hematocrit 34.3 % (40-54); Hemoglobin 11.1 g/dl (13.0-16.5); Lymphocyte # 0.81 X10^3/ul (4.0); Lymphocyte % 14.4 % (19-41); Mean Corp Hgb Conc 32.4 g/gl (32-36); Mean Corpuscular Volume 102.1 fL (80-94); Mean Platelet Vol. 11.3 fl (6.2-12.0); Monocyte# 0.54 X10^3/uL; Monocyte% 9.6 % (0-10); Neutrophil % 73.2 % (47-70); Platelet Count 137 K/mm3 (150-450); RBC Distribution Width SD 51.2 fl (35.1-43.9); Red Blood Count 3.36 M/mm3 (4.6-6.2); White Blood Count 5.6 K/mm3 (4.4-11.0)
--- NOTE | 2017-05-23 05:55 | ECHOD_ITS ---
Reason For Study: CHF Procedure This was a 2D Doppler, Color Flow transthoracic echocardiogram. The study was technically difficult. Exam performed portable in patient room. Left Ventricle Mild concentric left ventricular hypertrophy. The estimated ejection fraction is 55-60 %. There are regional wall motion abnormalities as specified. Infero-Basal: Mildly hypokinetic. Mid-Lateral : Mildly hypokinetic. Right Ventricle Normal size and thickness. Normal systolic function. Atria Normal left atrium. Normal right atrium. Normal atrial septum. Mitral Valve The mitral valve is structurally normal. No prolapse or stenosis seen. Trivial mitral valve insufficiency. Tricuspid Valve Normal tricuspid valve. Trivial tricuspid valve insufficiency. Right ventricular systolic pressure estimated to be 33 mmHg. Aortic Valve Normal aortic valve. Trisinus/trileaflet aortic valve. Pulmonic Valve Normal pulmonic valve. Great Vessels Normal aortic root. Normal arch. Normal inferior vena cava. Inferior vena cava collapse with sniff. Pericardium/Pleural No pericardial effusion. MMode/2D Measurements & Calculations LVIDd: 5.0 cm IVSd: 1.3 cm Ao root diam: 3.3 cm LVIDs: 3.5 cm LVPWd: 1.1 cm LA dimension: 4.0 cm RVDd: 2.3 cm FS: 30.2 % LAV(MOD-bp): 33.4 ml LA A4 area: 13.6 cm2 RA A4 area: 9.3 cm2 LAV(MOD-bp) Indexed: 17.3 ml/m2 LAV(MOD-sp2): 38.3 ml LAV(MOD-sp4): 30.8 ml Doppler Measurements & Calculations MV E max arsenio: 71.0 cm/sec Lat Peak E' Arsenio: 5.7 cm/sec Med Peak E' Arsenio: 4.0 cm/sec MV A max arsenio: 118.1 cm/sec E/E' lat: 12.5 E/E' med: 17.7 MV E/A: 0.60 Ao V2 max: 141.2 cm/sec LV V1 max: 99.8 cm/sec PA V2 max: 113.6 cm/sec Ao max P.0 mmHg LV V1 max P.0 mmHg Ao V2 mean: 96.6 cm/sec Ao mean P.2 mmHg Ao V2 VTI: 30.8 cm PI end-d arsenio: 107.9 cm/sec TR max arsenio: 264.3 cm/sec TR max P.0 mmHg Interpretation Summary Mild concentric left ventricular hypertrophy. The estimated ejection fraction is 55-60 %. There are regional wall motion abnormalities as specified. Trivial mitral valve insufficiency. Right ventricular systolic pressure estimated to be 33 mmHg. Comapred to echo report dated 05/20/2015, LV function has remained the same, bur RVSP has increased from 23 to 33 mm HG. Ordering Physician: Jacob Haley Referring Physician: Wiliam Lieberman MD Performed By: Sarah Fair RDCS, RVT
[2017-05-23 06:10] LABS: Albumin, Serum 2.8 g/dL (3.4-5.0); BUN 54 mg/dL (7-18); BUN/Creat Ratio 16.3 RATIO (10-20); Calcium,Total 8.6 mg/dL (8.5-10.1); Chloride 105 mmol/L (98-107); Creatinine, Serum 3.31 mg/dL (0.70-1.30); EST Glomerular Filtration Rate 19 mL/min (>60); Est Glom Filt Rate - Afr Amer 23 mL/min (>60); Estimated Creatinine Clearance 16.06 ml/min; Glucose 189 mg/dL (70-110); POSITIVE COUNT NO; POSITIVE DIFFERENTIAL NO; POSITIVE MORPHOLOGY NO; Phosphorus 3.6 mg/dL (2.5-4.9); Potassium 4.6 mmol/L (3.5-5.1); Sodium Level 138 mmol/L (136-145)
--- NOTE | 2017-05-23 06:16 | RAD_ITS ---
STUDY: X-RAY CHEST REASON FOR EXAM: Male, 81 years old. CHF. Shortness of breath. TECHNIQUE: AP and lateral views of the chest. COMPARISON: Comparison is made with prior study dated May 22, 2017. FINDINGS: EKG electrodes are seen. Since prior study, the CHF has improved. Minimal atelectasis persists in the right midlung. There is no demonstrated pleural abnormality. There is mild cardiac enlargement. Normal mediastinum and car. Normal visualized pulmonary arteries. There is atherosclerotic tortuosity of the aortic arch and descending thoracic aorta. There is demineralization of the osseous structures. Normal visualized ribs, clavicles, and shoulders. There is no demonstrated abnormality of the visualized soft tissue structures of the upper abdomen. RAD/Chest PA and Lateral IMPRESSION: The CHF has improved. Mild residual changes persist. Electronically Signed: Denilson Scott MD at 8:54 EST Tel [phone], Service support ,
[2017-05-23] MEDS: Ipratropium/Albuterol Sulfate 3 ML AMPUL.NEB INHALATION ×3 (06:41→18:50)
[2017-05-23 06:56] LABS: Bedside Glucose 209 mg/dL (70-110)
--- NOTE | 2017-05-23 08:42 | PCM.CONS.R ---
Consultation - Renal 05/23/17 PCP/ Referring MD: Requesting physician: Sonal Rios Primary care physician: Wiliam Lieberman Reason for Consultation:: CKD stage 4 - History of Present Illness History of Present Illness: The patient is a 81 year old M with prior history for CKD stage IV, last seen on consult in February 2015 when he had acute on chronic kidney failure due to NSTEMI. Creatinine has been at 2.3 increased to 3.6 in 2014. He was seen by level vial sealer out of town. He has a follow up appt with me on 05/29/17 at 10am. Consulted for CKD stage 4. Creatinine on admission was 2.8 increased to 3.3 today. Creatinine was at 3.0 eGFR 22cc/min in April 2017. His lisinopril was discontinued. He had no recent IV contrast exposure. He is admitted for shortness of breath, CHF. He has a history of cardiomyopathy with LVEF of 35%. He is currently diuresing well on IV Lasix and his shortness of breath has improved since admission. However patient is a poor historian with history of dementia. He does not know why he was admitted to the hospital. He does live with his daughter. Currently he is resting comfortably without respiratory distress. He denied nausea or vomiting. Appetite has been good. He denied any urinary complaints. Had a kidney ultrasound that showed mild right renal atrophy. He does have proteinuria on urinalysis with history of diabetes, hypertension and heart disease. Urine protein creatinine ratio was 1.7 g/gram creatinine. - Allergies Allergies: Allergies cefadroxil Allergy (Unknown, Verified 05/22/17 04:31) Unknown fexofenadine HCl [From Rosa] Allergy (Unknown, Verified 05/22/17 04:31) Unknown erythromycin base Allergy (Verified 05/22/17 04:31) Unknown - Current Medications Current Medications: Current Medications Acetaminophen (Tylenol) 650 mg PO Q6H PRN PRN PRN Reason: Mild Pain (scale 0-3)/T>100.7 Last Admin: 05/23/17 00:16 Dose: 650 mg Albuterol/Ipratropium (Duoneb) 3 ml INHALATION Q6HWA.RT [facility] Last Admin: 05/23/17 06:41 Dose: 3 ml Amiodarone HCl (Cordarone) 200 mg PO DAILY [facility] Last Admin: 05/22/17 10:31 Dose: 200 mg Ascorbic Acid (Vitamin C) 250 mg PO DAILYCM [facility] Last Admin: 05/22/17 10:27 Dose: 250 mg Aspirin (Aspirin, Baby) 81 mg PO DAILY@0800 [facility] Last Admin: 05/22/17 08:12 Dose: 81 mg Atorvastatin Calcium (Lipitor) 20 mg PO QHS [facility] Last Admin: 05/22/17 21:57 Dose: 20 mg [facility] Last Admin: 05/22/17 10:29 Dose: 4,000 unit Dextrose (D50w Syringe) 0 gm IV X1 PRN; Protocol PRN Reason: Hypoglycemia Furosemide (Lasix) 40 mg IV BIDLX [facility] Last Admin: 05/22/17 17:54 Dose: 40 mg Glucagon () 1 mg IM .X1 PRN PRN Reason: Hypoglycemia Heparin Sodium (Porcine) () 5,000 units SC BID [facility] Last Admin: 05/22/17 21:57 Dose: 5,000 units Hydralazine HCl (Apresoline) 25 mg PO TID [facility] Last Admin: 05/23/17 06:22 Dose: Not Given Insulin Aspart (Novolog Flexpen (Bkc)) 0 units SC ACHS [facility] PRN Reason: Protocol Last Admin: 05/22/17 21:57 Dose: 3 u Isosorbide Mononitrate (Imdur) 30 mg PO DAILY [facility] Last Admin: 05/22/17 10:31 Dose: 30 mg Magnesium Hydroxide (Milk Of Magnesia) 30 ml PO DAILY PRN PRN Reason: Constipation Pantoprazole Sodium (Protonix) 40 mg PO DAILY [facility] Last Admin: 05/22/17 10:32 Dose: 40 mg Sodium Chloride () 5 - 30 ml IV UD PRN PRN Reason: SALINE FLUSH Trazodone HCl (Desyrel) 50 mg PO QHS PRN PRN Reason: INSOMNIA Last Admin: 05/23/17 00:34 Dose: 50 mg - Past Medical History Past Medical History (Chronic Problems): Chronic Problems Generalized weakness (Chronic) Dementia (Chronic) Hypertension (Chronic) Renal failure (Chronic) - Past Surgical History Surgical History: appendectomy, - - Right leg vascular surgery-type unknown - Social History Marital Status: - lives with daughter Katie Smoking Status: Never smoker - Family History Maternal History Items: No pertinent history Paternal History Items: No pertinent history Review of Systems Constitutional: Reports: Weakness. Denies: Anorexia, Chills, Fever Eyes: Denies: Blurred vision HEENT: Denies: Head Aches Cardiovascular: Denies: Chest Pain, Edema, Syncope Respiratory: Reports: Shortness of Breath - improved. Denies: Cough Gastrointestinal: Denies: Abdominal Pain, Nausea, Vomiting Genitourinary: Denies: Dysuria Musculoskeletal: Reports: - - right hip pain. Denies: Back Pain Skin: Denies: Rash Neurological: Reports: - - Generalized weakness. Denies: Tremor, Seizures Psychiatric: Denies: Anxiety, Depression Hematologic/ Lymphatic: Reports: Anemia Comment: poor, limited historian, dementia Patient Problems: Active and Suspected Problems Shortness of breath (Acute) - Physical Exam General: Alert, Confused, Disoriented - time, - - poor historian, does not know why he is here HEENT: PERRLA, EOMI Oral: Moist Mucosa Neck: Supple Lungs: Clear to auscultation, Diminished Cardiovascular: Regular rate Abdomen: Bowel Sounds Present, Soft, Non Tender, Non-Distended Extremities: No edema, Peripheral Pulses Normal Skin: No rashes Musculoskeletal: No Muscle Wasting Neurological: Cranial nerves II-XII grossly intact Psych/Mental Status: Normal Affect, - - confused, disoriented to time Vital Signs Temp Pulse Resp BP Pulse Ox 97.3 F L 73 16 107/44 L 91 05/23/17 04:25 05/23/17 08:02 05/23/17 06:41 05/23/17 06:22 05/23/17 06:41 Oxygen Flow Rate 2 Oxygen Delivery Method Nasal Cannula Weight: 81.9 kg Body Mass Index (BMI) 29.8 Intake and Output for Last 24 Hours 05/21/17 05/22/17 05/23/17 23:59 23:59 23:59 Intake Total 494 / 494 360 / 360 Output Total 1670 / 1670 1200 / 1200 Balance -1176 / -1176 -840 / -840 Microbiology Past 72 Hours 05/22/17 07:55 Influenza Types A,B Direct FA (ROBERTO) - Final Mucosa - Nose Laboratory Tests Past 24 Hrs 05/22/17 05/22/17 05/22/17 08:05 08:05 08:05 WBC RBC Hgb Hct MCV MCH MCHC RDW RDW Differential Plt Count MPV Immature Gran % (Auto) Neut % (Auto) Lymph % (Auto) [place] % (Auto) Eos % (Auto) Baso % (Auto) Absolute Neuts (auto) Absolute Lymphs (auto) Total Counted Sodium Potassium Chloride Carbon Dioxide BUN Creatinine Estim Creat Clear Calc Est GFR (MDRD) Af Amer Est GFR (MDRD) Non-Af BUN/Creatinine Ratio Glucose Hemoglobin A1c Calcium Phosphorus Troponin I < 0.02 Albumin Triglycerides 59 Cholesterol 118 LDL Cholesterol 43 VLDL Cholesterol 12 HDL Cholesterol 63 Vitamin B12 Pending Vitamin D 25-Hydroxy Folate TSH 2.73 PTH Intact Urine Color Urine Clarity Urine pH Ur Specific [place] Urine Protein Urine Glucose (UA) Urine Ketones Urine Occult Blood Urine Nitrite Urine Bilirubin Urine Urobilinogen Ur Leukocyte Esterase U Random Total Protein Urine Creatinine Protein/Creatinin Ratio 05/22/17 05/22/17 05/22/17 08:05 12:25 18:42 WBC RBC Hgb Hct MCV MCH MCHC RDW RDW Differential Plt Count MPV Immature Gran % (Auto) Neut % (Auto) Lymph % (Auto) [place] % (Auto) Eos % (Auto) Baso % (Auto) Absolute Neuts (auto) Absolute Lymphs (auto) Total Counted Sodium Potassium Chloride Carbon Dioxide BUN Creatinine Estim Creat Clear Calc Est GFR (MDRD) Af Amer Est GFR (MDRD) Non-Af BUN/Creatinine Ratio Glucose Hemoglobin A1c Calcium Phosphorus Troponin I < 0.02 < 0.02 Albumin Triglycerides Cholesterol LDL Cholesterol VLDL Cholesterol HDL Cholesterol Vitamin B12 Vitamin D 25-Hydroxy Folate 16.50 TSH PTH Intact Urine Color Urine Clarity Urine pH Ur Specific [place] Urine Protein Urine Glucose (UA) Urine Ketones Urine Occult Blood Urine Nitrite Urine Bilirubin Urine Urobilinogen Ur Leukocyte Esterase U Random Total Protein Urine Creatinine Protein/Creatinin Ratio 05/22/17 05/23/17 05/23/17 18:42 02:30 02:30 WBC RBC Hgb Hct MCV MCH MCHC RDW RDW Differential Plt Count MPV Immature Gran % (Auto) Neut % (Auto) Lymph % (Auto) [place] % (Auto) Eos % (Auto) Baso % (Auto) Absolute Neuts (auto) Absolute Lymphs (auto) Total Counted Sodium Potassium Chloride Carbon Dioxide BUN Creatinine Estim Creat Clear Calc Est GFR (MDRD) Af Amer Est GFR (MDRD) Non-Af BUN/Creatinine Ratio Glucose Hemoglobin A1c 9.0 H Calcium Phosphorus Troponin I Albumin Triglycerides Cholesterol LDL Cholesterol VLDL Cholesterol HDL Cholesterol Vitamin B12 Vitamin D 25-Hydroxy Folate TSH PTH Intact Urine Color Yellow Urine Clarity Clear Urine pH 6.0 Ur Specific [place] 1.010 Urine Protein 30 H Urine Glucose (UA) 50 H Urine Ketones Negative Urine Occult Blood Negative Urine Nitrite Negative Urine Bilirubin Negative Urine Urobilinogen Normal Ur Leukocyte Esterase Negative U Random Total Protein 41.8 H Urine Creatinine 24.40 Protein/Creatinin Ratio 1713 H 05/23/17 05/23/17 05/23/17 05:00 05:00 05:00 WBC 5.6 RBC 3.36 L Hgb 11.1 L Hct 34.3 L MCV 102.1 H MCH 33.0 H MCHC 32.4 RDW 14.0 RDW Differential 51.2 H Plt Count 137 L MPV 11.3 Immature Gran % (Auto) 0.500 Neut % (Auto) 73.2 H Lymph % (Auto) 14.4 L [place] % (Auto) 9.6 Eos % (Auto) 2.1 Baso % (Auto) 0.2 Absolute Neuts (auto) 4.1 Absolute Lymphs (auto) 0.81 L Total Counted Not Reportable Sodium 138 Potassium 4.6 Chloride 105 Carbon Dioxide 24.0 BUN 54 H Creatinine 3.31 H Estim Creat Clear Calc 16.06 Est GFR (MDRD) Af Amer 23 L Est GFR (MDRD) Non-Af 19 L BUN/Creatinine Ratio 16.3 Glucose 189 H Hemoglobin A1c Calcium 8.6 Phosphorus 3.6 Troponin I Albumin 2.8 L Triglycerides Cholesterol LDL Cholesterol VLDL Cholesterol HDL Cholesterol Vitamin B12 Vitamin D 25-Hydroxy Pending Folate TSH PTH Intact Urine Color Urine Clarity Urine pH Ur Specific [place] Urine Protein Urine Glucose (UA) Urine Ketones Urine Occult Blood Urine Nitrite Urine Bilirubin Urine Urobilinogen Ur Leukocyte Esterase U Random Total Protein Urine Creatinine Protein/Creatinin Ratio 05/23/17 05:00 WBC RBC Hgb Hct MCV MCH MCHC RDW RDW Differential Plt Count MPV Immature Gran % (Auto) Neut % (Auto) Lymph % (Auto) [place] % (Auto) Eos % (Auto) Baso % (Auto) Absolute Neuts (auto) Absolute Lymphs (auto) Total Counted Sodium Potassium Chloride Carbon Dioxide BUN Creatinine Estim Creat Clear Calc Est GFR (MDRD) Af Amer Est GFR (MDRD) Non-Af BUN/Creatinine Ratio Glucose Hemoglobin A1c Calcium Phosphorus Troponin I Albumin Triglycerides Cholesterol LDL Cholesterol VLDL Cholesterol HDL Cholesterol Vitamin B12 Vitamin D 25-Hydroxy Folate TSH PTH Intact Pending Urine Color Urine Clarity Urine pH Ur Specific [place] Urine Protein Urine Glucose (UA) Urine Ketones Urine Occult Blood Urine Nitrite Urine Bilirubin Urine Urobilinogen Ur Leukocyte Esterase U Random Total Protein Urine Creatinine Protein/Creatinin Ratio POC Glucose 05/23/17 05/22/17 05/22/17 06:43 21:56 15:50 POC Glucose 209 H 239 H 284 H 05/22/17 11:30 POC Glucose 201 H Clinical Impression(s) from Imaging Studies Renal Ultrasound 05/22/17 18:26 IMPRESSION: Right renal sub-2 cm central cyst with otherwise no evidence of acute renal process. Mild right renal atrophic changes. Electronically Signed: Mainor Sabillon DO at 0:01 EST , Service support , Assessment/Plan Active and Suspected Problems Shortness of breath (Acute) 1. Acute on CKD stage 4 due to cardiomyopathy with underlying diabetic nephropathy, arterionephrosclerosis, renal atrophy. Creatinine increase from 2.8 to 3.3. Recommend to change lasix to oral. Oxygenation stable with improved CHF pattern on CXR. Attempt to reach both daughters to discuss [place] [facility] [place] plans in regards to his CKD, option of dialysis. 2. HTN stable 3. 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 Lisinopril on hold due to worsening renal ffxn 4. Acute on chronic CHF. stabilized with iv lasix. Cardiology following 5. CAD with cardiomyopathy EF 35% 6. Dementia poor historian. 7. 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 Start calcitriol 8. Vit D def start ergocalciferol
--- NOTE | 2017-05-23 08:45 | CON.PCM_ITS ---
Consultation - Renal 05/23/17 PCP/ Referring MD: Requesting physician: Sonal Rios Primary care physician: Wiliam Lieberman Reason for Consultation:: CKD stage 4 - History of Present Illness History of Present Illness: The patient is a 81 year old M with prior history for CKD stage IV, last seen on consult in February 2015 when he had acute on chronic kidney failure due to NSTEMI. Creatinine has been at 2.3 increased to 3.6 in 2014. He was seen by classroom coordinator out of town. He has a follow up appt with me on 05/29/17 at 10am. Consulted for CKD stage 4. Creatinine on admission was 2.8 increased to 3.3 today. Creatinine was at 3.0 eGFR 22cc/min in April 2017. His lisinopril was discontinued. He had no recent IV contrast exposure. He is admitted for shortness of breath, CHF. He has a history of cardiomyopathy with LVEF of 35%. He is currently diuresing well on IV Lasix and his shortness of breath has improved since admission. However patient is a poor historian with history of dementia. He does not know why he was admitted to the hospital. He does live with his daughter. Currently he is resting comfortably without respiratory distress. He denied nausea or vomiting. Appetite has been good. He denied any urinary complaints. Had a kidney ultrasound that showed mild right renal atrophy. He does have proteinuria on urinalysis with history of diabetes, hypertension and heart disease. Urine protein creatinine ratio was 1.7 g/gram creatinine. - Allergies Allergies: Allergies cefadroxil Allergy (Unknown, Verified 05/22/17 04:31) Unknown fexofenadine HCl [From Rosa] Allergy (Unknown, Verified 05/22/17 04:31) Unknown erythromycin base Allergy (Verified 05/22/17 04:31) Unknown - Current Medications Current Medications: Current Medications Acetaminophen (Tylenol) 650 mg PO Q6H PRN PRN PRN Reason: Mild Pain (scale 0-3)/T>100.7 Last Admin: 05/23/17 00:16 Dose: 650 mg Albuterol/Ipratropium (Duoneb) 3 ml INHALATION Q6HWA.RT [facility] Last Admin: 05/23/17 06:41 Dose: 3 ml Amiodarone HCl (Cordarone) 200 mg PO DAILY [facility] Last Admin: 05/22/17 10:31 Dose: 200 mg Ascorbic Acid (Vitamin C) 250 mg PO DAILYCM [facility] Last Admin: 05/22/17 10:27 Dose: 250 mg Aspirin (Aspirin, Baby) 81 mg PO DAILY@0800 [facility] Last Admin: 05/22/17 08:12 Dose: 81 mg Atorvastatin Calcium (Lipitor) 20 mg PO QHS [facility] Last Admin: 05/22/17 21:57 Dose: 20 mg [facility]olecalcifer[facility] ([facility]itamin D) [facility] Last Admin: 05/22/17 10:29 Dose: 4,000 unit Dextrose (D50w Syringe) 0 gm IV X1 PRN; Protocol PRN Reason: Hypoglycemia Furosemide (Lasix) 40 mg IV BIDLX [facility] Last Admin: 05/22/17 17:54 Dose: 40 mg Glucagon () 1 mg IM .X1 PRN PRN Reason: Hypoglycemia Heparin Sodium (Porcine) () 5,000 units SC BID [facility] Last Admin: 05/22/17 21:57 Dose: 5,000 units Hydralazine HCl (Apresoline) 25 mg PO TID [facility] Last Admin: 05/23/17 06:22 Dose: Not Given Insulin Aspart (Novolog Flexpen (Bkc)) 0 units SC ACHS [facility] PRN Reason: Protocol Last Admin: 05/22/17 21:57 Dose: 3 u Isosorbide Mononitrate (Imdur) 30 mg PO DAILY [facility] Last Admin: 05/22/17 10:31 Dose: 30 mg Magnesium Hydroxide (Milk Of Magnesia) 30 ml PO DAILY PRN PRN Reason: Constipation Pantoprazole Sodium (Protonix) 40 mg PO DAILY [facility] Last Admin: 05/22/17 10:32 Dose: 40 mg Sodium Chloride () 5 - 30 ml IV UD PRN PRN Reason: SALINE FLUSH Trazodone HCl (Desyrel) 50 mg PO QHS PRN PRN Reason: INSOMNIA Last Admin: 05/23/17 00:34 Dose: 50 mg - Past Medical History Past Medical History (Chronic Problems): Chronic Problems Generalized weakness (Chronic) Dementia (Chronic) Hypertension (Chronic) Renal failure (Chronic) - Past Surgical History Surgical History: appendectomy, - - Right leg vascular surgery-type unknown - Social History Marital Status: - lives with daughter Katie Smoking Status: Never smoker - Family History Maternal History Items: No pertinent history Paternal History Items: No pertinent history Review of Systems Constitutional: Reports: Weakness. Denies: Anorexia, Chills, Fever Eyes: Denies: Blurred vision HEENT: Denies: Head Aches Cardiovascular: Denies: Chest Pain, Edema, Syncope Respiratory: Reports: Shortness of Breath - improved. Denies: Cough Gastrointestinal: Denies: Abdominal Pain, Nausea, Vomiting Genitourinary: Denies: Dysuria Musculoskeletal: Reports: - - right hip pain. Denies: Back Pain Skin: Denies: Rash Neurological: Reports: - - Generalized weakness. Denies: Tremor, Seizures Psychiatric: Denies: Anxiety, Depression Hematologic/ Lymphatic: Reports: Anemia Comment: poor, limited historian, dementia Patient Problems: Active and Suspected Problems Shortness of breath (Acute) - Physical Exam General: Alert, Confused, Disoriented - time, - - poor historian, does not know why he is here HEENT: PERRLA, EOMI Oral: Moist Mucosa Neck: Supple Lungs: Clear to auscultation, Diminished Cardiovascular: Regular rate Abdomen: Bowel Sounds Present, Soft, Non Tender, Non-Distended Extremities: No edema, Peripheral Pulses Normal Skin: No rashes Musculoskeletal: No Muscle Wasting Neurological: Cranial nerves II-XII grossly intact Psych/Mental Status: Normal Affect, - - confused, disoriented to time Vital Signs Temp Pulse Resp BP Pulse Ox 97.3 F L 73 16 107/44 L 91 05/23/17 04:25 05/23/17 08:02 05/23/17 06:41 05/23/17 06:22 05/23/17 06:41 Oxygen Flow Rate 2 Oxygen Delivery Method Nasal Cannula Weight: 81.9 kg Body Mass Index (BMI) 29.8 Intake and Output for Last 24 Hours 05/21/17 05/22/17 05/23/17 23:59 23:59 23:59 Intake Total 494 / 494 360 / 360 Output Total 1670 / 1670 1200 / 1200 Balance -1176 / -1176 -840 / -840 Microbiology Past 72 Hours 05/22/17 07:55 Influenza Types A,B Direct FA (ROBERTO) - Final Mucosa - Nose Laboratory Tests Past 24 Hrs 05/22/17 05/22/17 05/22/17 08:05 08:05 08:05 WBC RBC Hgb Hct MCV MCH MCHC RDW RDW Differential Plt Count MPV Immature Gran % (Auto) Neut % (Auto) Lymph % (Auto) [place] % (Auto) Eos % (Auto) Baso % (Auto) Absolute Neuts (auto) Absolute Lymphs (auto) Total Counted Sodium Potassium Chloride Carbon Dioxide BUN Creatinine Estim Creat Clear Calc Est GFR (MDRD) Af Amer Est GFR (MDRD) Non-Af BUN/Creatinine Ratio Glucose Hemoglobin A1c Calcium Phosphorus Troponin I < 0.02 Albumin Triglycerides 59 Cholesterol 118 LDL Cholesterol 43 VLDL Cholesterol 12 HDL Cholesterol 63 Vitamin B12 Pending Vitamin D 25-Hydroxy Folate TSH 2.73 PTH Intact Urine Color Urine Clarity Urine pH Ur Specific [place] Urine Protein Urine Glucose (UA) Urine Ketones Urine Occult Blood Urine Nitrite Urine Bilirubin Urine Urobilinogen Ur Leukocyte Esterase U Random Total Protein Urine Creatinine Protein/Creatinin Ratio 05/22/17 05/22/17 05/22/17 08:05 12:25 18:42 WBC RBC Hgb Hct MCV MCH MCHC RDW RDW Differential Plt Count MPV Immature Gran % (Auto) Neut % (Auto) Lymph % (Auto) [place] % (Auto) Eos % (Auto) Baso % (Auto) Absolute Neuts (auto) Absolute Lymphs (auto) Total Counted Sodium Potassium Chloride Carbon Dioxide BUN Creatinine Estim Creat Clear Calc Est GFR (MDRD) Af Amer Est GFR (MDRD) Non-Af BUN/Creatinine Ratio Glucose Hemoglobin A1c Calcium Phosphorus Troponin I < 0.02 < 0.02 Albumin Triglycerides Cholesterol LDL Cholesterol VLDL Cholesterol HDL Cholesterol Vitamin B12 Vitamin D 25-Hydroxy Folate 16.50 TSH PTH Intact Urine Color Urine Clarity Urine pH Ur Specific [place] Urine Protein Urine Glucose (UA) Urine Ketones Urine Occult Blood Urine Nitrite Urine Bilirubin Urine Urobilinogen Ur Leukocyte Esterase U Random Total Protein Urine Creatinine Protein/Creatinin Ratio 05/22/17 05/23/17 05/23/17 18:42 02:30 02:30 WBC RBC Hgb Hct MCV MCH MCHC RDW RDW Differential Plt Count MPV Immature Gran % (Auto) Neut % (Auto) Lymph % (Auto) [place] % (Auto) Eos % (Auto) Baso % (Auto) Absolute Neuts (auto) Absolute Lymphs (auto) Total Counted Sodium Potassium Chloride Carbon Dioxide BUN Creatinine Estim Creat Clear Calc Est GFR (MDRD) Af Amer Est GFR (MDRD) Non-Af BUN/Creatinine Ratio Glucose Hemoglobin A1c 9.0 H Calcium Phosphorus Troponin I Albumin Triglycerides Cholesterol LDL Cholesterol VLDL Cholesterol HDL Cholesterol Vitamin B12 Vitamin D 25-Hydroxy Folate TSH PTH Intact Urine Color Yellow Urine Clarity Clear Urine pH 6.0 Ur Specific [place] 1.010 Urine Protein 30 H Urine Glucose (UA) 50 H Urine Ketones Negative Urine Occult Blood Negative Urine Nitrite Negative Urine Bilirubin Negative Urine Urobilinogen Normal Ur Leukocyte Esterase Negative U Random Total Protein 41.8 H Urine Creatinine 24.40 Protein/Creatinin Ratio 1713 H 05/23/17 05/23/17 05/23/17 05:00 05:00 05:00 WBC 5.6 RBC 3.36 L Hgb 11.1 L Hct 34.3 L MCV 102.1 H MCH 33.0 H MCHC 32.4 RDW 14.0 RDW Differential 51.2 H Plt Count 137 L MPV 11.3 Immature Gran % (Auto) 0.500 Neut % (Auto) 73.2 H Lymph % (Auto) 14.4 L [place] % (Auto) 9.6 Eos % (Auto) 2.1 Baso % (Auto) 0.2 Absolute Neuts (auto) 4.1 Absolute Lymphs (auto) 0.81 L Total Counted Not Reportable Sodium 138 Potassium 4.6 Chloride 105 Carbon Dioxide 24.0 BUN 54 H Creatinine 3.31 H Estim Creat Clear Calc 16.06 Est GFR (MDRD) Af Amer 23 L Est GFR (MDRD) Non-Af 19 L BUN/Creatinine Ratio 16.3 Glucose 189 H Hemoglobin A1c Calcium 8.6 Phosphorus 3.6 Troponin I Albumin 2.8 L Triglycerides Cholesterol LDL Cholesterol VLDL Cholesterol HDL Cholesterol Vitamin B12 Vitamin D 25-Hydroxy Pending Folate TSH PTH Intact Urine Color Urine Clarity Urine pH Ur Specific [place] Urine Protein Urine Glucose (UA) Urine Ketones Urine Occult Blood Urine Nitrite Urine Bilirubin Urine Urobilinogen Ur Leukocyte Esterase U Random Total Protein Urine Creatinine Protein/Creatinin Ratio 05/23/17 05:00 WBC RBC Hgb Hct MCV MCH MCHC RDW RDW Differential Plt Count MPV Immature Gran % (Auto) Neut % (Auto) Lymph % (Auto) [place] % (Auto) Eos % (Auto) Baso % (Auto) Absolute Neuts (auto) Absolute Lymphs (auto) Total Counted Sodium Potassium Chloride Carbon Dioxide BUN Creatinine Estim Creat Clear Calc Est GFR (MDRD) Af Amer Est GFR (MDRD) Non-Af BUN/Creatinine Ratio Glucose Hemoglobin A1c Calcium Phosphorus Troponin I Albumin Triglycerides Cholesterol LDL Cholesterol VLDL Cholesterol HDL Cholesterol Vitamin B12 Vitamin D 25-Hydroxy Folate TSH PTH Intact Pending Urine Color Urine Clarity Urine pH Ur Specific [place] Urine Protein Urine Glucose (UA) Urine Ketones Urine Occult Blood Urine Nitrite Urine Bilirubin Urine Urobilinogen Ur Leukocyte Esterase U Random Total Protein Urine Creatinine Protein/Creatinin Ratio POC Glucose 05/23/17 05/22/17 05/22/17 06:43 21:56 15:50 POC Glucose 209 H 239 H 284 H 05/22/17 11:30 POC Glucose 201 H Clinical Impression(s) from Imaging Studies Renal Ultrasound 05/22/17 18:26 IMPRESSION: Right renal sub-2 cm central cyst with otherwise no evidence of acute renal process. Mild right renal atrophic changes. Electronically Signed: Mainor Sabillon DO at 0:01 EST , Service support , Assessment/Plan Active and Suspected Problems Shortness of breath (Acute) 1. Acute on CKD stage 4 due to cardiomyopathy with underlying diabetic nephropathy, arterionephrosclerosis, renal atrophy. Creatinine increase from 2.8 to 3.3. Recommend to change lasix to oral. Oxygenation stable with improved CHF pattern on CXR. Attempt to reach both daughters to discuss skilled nursing plans in regards to his CKD, option of dialysis. 2. HTN stable 3. 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 Lisinopril on hold due to worsening renal ffxn 4. Acute on chronic CHF. stabilized with iv lasix. Cardiology following 5. CAD with cardiomyopathy EF 35% 6. Dementia poor historian. 7. 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 Start calcitriol 8. Vit D def start ergocalciferol
[2017-05-23 09:22] LABS: PTHIN 391.8 pg/mL (18.4-80.1); Vitamin D,25 Hydroxy 17.4 ng/mL
--- NOTE | 2017-05-23 09:22 | PN_ITS ---
Patient Problems: Active and Suspected Problems Shortness of breath (Acute) Subjective: Pt resting in bed comfortably. He reports his SOB is improved. He is still on O2 , does not use at home. He states he continues to have no problem emptying his bladder and has no discomfort. He has no chest pain. No worsening of edema. No abdominal pain, nausea, diarrhea. He states he has not moved his bowels since being here and wants something to help. - Physical Exam General: Alert, Oriented x3, Cooperative HEENT: Atraumatic, PERRLA, EOMI, Normocephalic Neck: Supple, No JVD, Negative Carotid Bruits Lungs: Normal air movement, Rales - BL bases Cardiovascular: Regular rate, No murmurs Abdomen: Bowel Sounds Present, Soft, Non Tender Extremities: Capillary Refill Less than 3 Seconds, Edema - swelling in BL feet improved since yesterday. Skin: No rashes, No breakdown Musculoskeletal: No Tenderness to Palpation of Joints or Extremities Neurological: Cranial nerves II-XII grossly intact Psych/Mental Status: Normal Affect, Appropriate, Alert and oriented to time, place, person, mood and affect Vital Signs Temp Pulse Resp BP Pulse Ox 97.3 F L 73 16 107/44 L 91 05/23/17 04:25 05/23/17 08:02 05/23/17 06:41 05/23/17 06:22 05/23/17 06:41 Oxygen Flow Rate 2 Oxygen Delivery Method Nasal Cannula Weight: 81.9 kg Body Mass Index (BMI) 29.8 Intake and Output for Last 24 Hours 05/21/17 05/22/17 05/23/17 23:59 23:59 23:59 Intake Total 494 / 494 360 / 360 Output Total 1670 / 1670 1200 / 1200 Balance -1176 / -1176 -840 / -840 Microbiology Past 72 Hours 05/22/17 07:55 Influenza Types A,B Direct FA (ROBERTO) - Final Mucosa - Nose Laboratory Tests Past 24 Hrs 05/22/17 05/22/17 05/22/17 08:05 08:05 08:05 WBC RBC Hgb Hct MCV MCH MCHC RDW RDW Differential Plt Count MPV Immature Gran % (Auto) Neut % (Auto) Lymph % (Auto) Bartholomew % (Auto) Eos % (Auto) Baso % (Auto) Absolute Neuts (auto) Absolute Lymphs (auto) Total Counted Sodium Potassium Chloride Carbon Dioxide BUN Creatinine Estim Creat Clear Calc Est GFR (MDRD) Af Amer Est GFR (MDRD) Non-Af BUN/Creatinine Ratio Glucose Hemoglobin A1c Calcium Phosphorus Troponin I Albumin Triglycerides 59 Cholesterol 118 LDL Cholesterol 43 VLDL Cholesterol 12 HDL Cholesterol 63 Vitamin B12 Pending Vitamin D 25-Hydroxy Folate 16.50 TSH 2.73 PTH Intact Urine Color Urine Clarity Urine pH Ur Specific [place] Urine Protein Urine Glucose (UA) Urine Ketones Urine Occult Blood Urine Nitrite Urine Bilirubin Urine Urobilinogen Ur Leukocyte Esterase U Random Total Protein Urine Creatinine Protein/Creatinin Ratio 05/22/17 05/22/17 05/22/17 12:25 18:42 18:42 WBC RBC Hgb Hct MCV MCH MCHC RDW RDW Differential Plt Count MPV Immature Gran % (Auto) Neut % (Auto) Lymph % (Auto) Bartholomew % (Auto) Eos % (Auto) Baso % (Auto) Absolute Neuts (auto) Absolute Lymphs (auto) Total Counted Sodium Potassium Chloride Carbon Dioxide BUN Creatinine Estim Creat Clear Calc Est GFR (MDRD) Af Amer Est GFR (MDRD) Non-Af BUN/Creatinine Ratio Glucose Hemoglobin A1c 9.0 H Calcium Phosphorus Troponin I < 0.02 < 0.02 Albumin Triglycerides Cholesterol LDL Cholesterol VLDL Cholesterol HDL Cholesterol Vitamin B12 Vitamin D 25-Hydroxy Folate TSH PTH Intact Urine Color Urine Clarity Urine pH Ur Specific [place] Urine Protein Urine Glucose (UA) Urine Ketones Urine Occult Blood Urine Nitrite Urine Bilirubin Urine Urobilinogen Ur Leukocyte Esterase U Random Total Protein Urine Creatinine Protein/Creatinin Ratio 05/23/17 05/23/17 05/23/17 02:30 02:30 05:00 WBC 5.6 RBC 3.36 L Hgb 11.1 L Hct 34.3 L MCV 102.1 H MCH 33.0 H MCHC 32.4 RDW 14.0 RDW Differential 51.2 H Plt Count 137 L MPV 11.3 Immature Gran % (Auto) 0.500 Neut % (Auto) 73.2 H Lymph % (Auto) 14.4 L Bartholomew % (Auto) 9.6 Eos % (Auto) 2.1 Baso % (Auto) 0.2 Absolute Neuts (auto) 4.1 Absolute Lymphs (auto) 0.81 L Total Counted Not Reportable Sodium Potassium Chloride Carbon Dioxide BUN Creatinine Estim Creat Clear Calc Est GFR (MDRD) Af Amer Est GFR (MDRD) Non-Af BUN/Creatinine Ratio Glucose Hemoglobin A1c Calcium Phosphorus Troponin I Albumin Triglycerides Cholesterol LDL Cholesterol VLDL Cholesterol HDL Cholesterol Vitamin B12 Vitamin D 25-Hydroxy Folate TSH PTH Intact Urine Color Yellow Urine Clarity Clear Urine pH 6.0 Ur Specific [place] 1.010 Urine Protein 30 H Urine Glucose (UA) 50 H Urine Ketones Negative Urine Occult Blood Negative Urine Nitrite Negative Urine Bilirubin Negative Urine Urobilinogen Normal Ur Leukocyte Esterase Negative U Random Total Protein 41.8 H Urine Creatinine 24.40 Protein/Creatinin Ratio 1713 H 05/23/17 05/23/17 05/23/17 05:00 05:00 05:00 WBC RBC Hgb Hct MCV MCH MCHC RDW RDW Differential Plt Count MPV Immature Gran % (Auto) Neut % (Auto) Lymph % (Auto) Bartholomew % (Auto) Eos % (Auto) Baso % (Auto) Absolute Neuts (auto) Absolute Lymphs (auto) Total Counted Sodium 138 Potassium 4.6 Chloride 105 Carbon Dioxide 24.0 BUN 54 H Creatinine 3.31 H Estim Creat Clear Calc 16.06 Est GFR (MDRD) Af Amer 23 L Est GFR (MDRD) Non-Af 19 L BUN/Creatinine Ratio 16.3 Glucose 189 H Hemoglobin A1c Calcium 8.6 Phosphorus 3.6 Troponin I Albumin 2.8 L Triglycerides Cholesterol LDL Cholesterol VLDL Cholesterol HDL Cholesterol Vitamin B12 Vitamin D 25-Hydroxy Pending Folate TSH PTH Intact Pending Urine Color Urine Clarity Urine pH Ur Specific [place] Urine Protein Urine Glucose (UA) Urine Ketones Urine Occult Blood Urine Nitrite Urine Bilirubin Urine Urobilinogen Ur Leukocyte Esterase U Random Total Protein Urine Creatinine Protein/Creatinin Ratio POC Glucose 05/23/17 05/22/17 05/22/17 06:43 21:56 15:50 POC Glucose 209 H 239 H 284 H 05/22/17 11:30 POC Glucose 201 H Assessment/Plan Active and Suspected Problems Shortness of breath (Acute) 1. Acute CHF exacerbation, subtype unclear-echo pending. Cardiology following. Continue IV Lasix. No lisinopril with worsening renal failure. He is not on a beta-castillo, will defer with acute exacerbation, and cardiology notes not advised given his bradycardia and current amiodarone therapy. Continue hydralazine, Imdur. -Mild rales on exam, swelling in feet improved. -Chest x-ray demonstrates bilateral perihilar pulmonary edema, no effusions or pneumothoraces, heart is borderline enlarged. -Troponin negative ?3 -BNP slightly elevated at 166.8 -TSH normal 2. PIPPA on CKD stage IV- Dr. Hawk consulted. No lisinopril. Renal US with no acute changes. 3. History of CAD-history of non-ST segment elevation myocardial infarction. Will continue new aspirin, atorvastatin. LDL at goal, 43 4. On admission he had Hypertensive crisis as evidenced by BP > 180 systolic and heart failure. This is now resolved with the addition of new antihypertensive agents. 5. Type 2 diabetes- A1C demonstrates poor control, I will initiate levemir 0.2 units/kg tonight. Continue with SSI 6. Macrocytic anemia, folate negative, b12 pending. DVT prophylaxis: heparin This patient was seen by Mckinley Morfin PA-C under the supervision of Doctor Rios.
[2017-05-23] MEDS: Aspirin 81 MG TAB.CHEW PO (09:43)
[2017-05-23] MEDS: Amiodarone 200 MG Tablet PO (09:44)
[2017-05-23] MEDS: Pantoprazole Sodium 40 MG Tablet PO (09:44)
[2017-05-23] MEDS: Isosorbide Mononitrate 30 MG Tablet PO (09:44)
[2017-05-23] MEDS: Ascorbic Acid 500 MG Tablet 250 MG PO (09:44)
[2017-05-23] MEDS: Heparin Injection 5,000 UNITS/ML Syringe 5000 UNITS SC ×2 (09:45→21:30)
[2017-05-23] MEDS: Furosemide 40 MG Tablet PO ×2 (09:49→16:50)
[2017-05-23 10:07] LABS: Vitamin B12 227 pg/mL (211-911)
[2017-05-23] MEDS: Magnesium Hydroxide 30 ML UDC PO (10:47)
--- NOTE | 2017-05-23 11:09 | PCM.PN.CARD ---
Subjectve: Patient feeling much better this morning. No difficulty laying down flat. Still on low-dose oxygen therapy. Edema has resolved. Blood pressure much better controlled. Telemetry negative. Objective: Vital Signs Temp Pulse Resp BP Pulse Ox 97.2 F L 72 16 134/66 H 94 05/23/17 09:45 05/23/17 10:50 05/23/17 09:45 05/23/17 09:45 05/23/17 09:45 Oxygen Flow Rate 2 Oxygen Delivery Method Nasal Cannula Weight: 180 lb 8.937 oz Body Mass Index (BMI) 29.8 Intake and Output for Last 24 Hours 05/21/17 05/22/17 05/23/17 23:59 23:59 23:59 Intake Total 494 / 494 360 / 360 Output Total 1670 / 1670 1200 / 1200 Balance -1176 / -1176 -840 / -840 General: Awake, Alert, Oriented x 3 HEENT: PERRL, EOMI, Sclera Non Icteric Neck: Supple, Good ROM, No Lymph Node Enlargement Lungs: Clear to auscultation Cardiovascular: Regular Rhythm, Normal S1, Normal S2, No Murmurs, No Rubs, No Gallops Vascular: No Carotid Bruits, Normal Femoral Pulses, Normal Radial Pulses, Normal Dorsalis Pedal Pulse, Normal Posterior Tibial Pulses Abdomen: Bowel Sounds Present, Soft, Non Tender, No HSM, No Organomegaly Extremities: No Cyanosis, No Clubbing, No edema Neurological: No Focal Motor or Sensory Deficit 05/22/17 12:25: Troponin I < 0.02 05/22/17 18:42: Troponin I < 0.02 05/22/17 18:42: Hemoglobin A1c 9.0 H 05/23/17 02:30: Urine Color Yellow, Urine Clarity Clear, Urine pH 6.0, Ur Specific [place] 1.010, Urine Protein 30 H, Urine Glucose (UA) 50 H, Urine Ketones Negative, Urine Occult Blood Negative, Urine Nitrite Negative, Urine Bilirubin Negative, Urine Urobilinogen Normal, Ur Leukocyte Esterase Negative 05/23/17 05:00: WBC 5.6, RBC 3.36 L, Hgb 11.1 L, Hct 34.3 L, MCV 102.1 H, MCH 33.0 H, MCHC 32.4, RDW 14.0, RDW Differential 51.2 H, Plt Count 137 L, MPV 11.3, Immature Gran % (Auto) 0.500, Neut % (Auto) 73.2 H, Lymph % (Auto) 14.4 L, [place] % (Auto) 9.6, Eos % (Auto) 2.1, Baso % (Auto) 0.2, Absolute Neuts (auto) 4.1, Total Counted Not Reportable 05/23/17 05:00: Sodium 138, Potassium 4.6, Chloride 105, Carbon Dioxide 24.0, BUN 54 H, Creatinine 3.31 H, Est GFR (MDRD) Af Amer 23 L, Est GFR (MDRD) Non-Af 19 L, BUN/Creatinine Ratio 16.3, Glucose 189 H, Calcium 8.6, Phosphorus 3.6 Rhythm: EKG: ECHO: LV function around 55-60% with mild inferolateral hypokinesis consistent with previous echocardiogram, mild increase in pulmonary pressures. Stress Test: Cardiac Cath: PCI: CT Surgery: Holter monitor: EPS: PPM: CXR: Chest CT Scan: Assessment/Plan 1. Congestive heart failure: The patient has progressively worsening hypertensive and LV dysfunction induced dyspnea on exertion, shortness of breath, and evidence of pulmonary edema on physical exam as well as chest x-ray. Patient has chronic renal insufficiency with an estimated GFR of less than 20, and uncontrolled hypertension. Although the patient's symptoms began to occur after inducing low-dose lisinopril last , he has still remained hypertensive over the weekend with blood pressures in the systolic range between 150 and 170 per his daughter. Patient had successful symptomatic relief with antihypertensive therapy in the form of Imdur 30 mg a day as well as IV Lasix therapy. I agree with changing his IV Lasix to Lasix 40 mg p.o. twice daily to maintain fluid status. Recommend continuing gentle diuresis to avoid acute on chronic renal failure. In addition given his renal insufficiency I would recommend discontinuation of lisinopril and initiation of a combination of Imdur/hydralazine for better hypertensive control and afterload reduction. Patient is not on a beta-castillo at this time given his bradycardia, and amiodarone is being used as his beta-castillo. Patient has never had pulmonary function test to my knowledge and he is a lifelong non-smoker. 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 2. Coronary artery disease: The patient has a history of GI bleeding in 2015 and is currently on a baby aspirin tolerating this well. His hemoglobin is stable. At the time of his previous admission I had a long and thorough discussion with the patient and family regarding catheterization to identify possible areas of correctable coronary artery disease and it was declined at that time. In addition the patient is a [employer]. Recommend holding off on catheterization at this time. 3. Hyperlipidemia: Given his risk factors his LDL should be less than 70. Continue Zocor. 4. Thank you very much for the opportunity to put dissipate in the cardiac care of your patient. Patient may be discharged home once off of oxygen. Code Visit Inpatient E&M: 30278 Subs Hosp L2
--- NOTE | 2017-05-23 11:12 | PN.CARD_ITS ---
Subjectve: Patient feeling much better this morning. No difficulty laying down flat. Still on low-dose oxygen therapy. Edema has resolved. Blood pressure much better controlled. Telemetry negative. Objective: Vital Signs Temp Pulse Resp BP Pulse Ox 97.2 F L 72 16 134/66 H 94 05/23/17 09:45 05/23/17 10:50 05/23/17 09:45 05/23/17 09:45 05/23/17 09:45 Oxygen Flow Rate 2 Oxygen Delivery Method Nasal Cannula Weight: 180 lb 8.937 oz Body Mass Index (BMI) 29.8 Intake and Output for Last 24 Hours 05/21/17 05/22/17 05/23/17 23:59 23:59 23:59 Intake Total 494 / 494 360 / 360 Output Total 1670 / 1670 1200 / 1200 Balance -1176 / -1176 -840 / -840 General: Awake, Alert, Oriented x 3 HEENT: PERRL, EOMI, Sclera Non Icteric Neck: Supple, Good ROM, No Lymph Node Enlargement Lungs: Clear to auscultation Cardiovascular: Regular Rhythm, Normal S1, Normal S2, No Murmurs, No Rubs, No Gallops Vascular: No Carotid Bruits, Normal Femoral Pulses, Normal Radial Pulses, Normal Dorsalis Pedal Pulse, Normal Posterior Tibial Pulses Abdomen: Bowel Sounds Present, Soft, Non Tender, No HSM, No Organomegaly Extremities: No Cyanosis, No Clubbing, No edema Neurological: No Focal Motor or Sensory Deficit 05/22/17 12:25: Troponin I < 0.02 05/22/17 18:42: Troponin I < 0.02 05/22/17 18:42: Hemoglobin A1c 9.0 H 05/23/17 02:30: Urine Color Yellow, Urine Clarity Clear, Urine pH 6.0, Ur Specific [place] 1.010, Urine Protein 30 H, Urine Glucose (UA) 50 H, Urine Ketones Negative, Urine Occult Blood Negative, Urine Nitrite Negative, Urine Bilirubin Negative, Urine Urobilinogen Normal, Ur Leukocyte Esterase Negative 05/23/17 05:00: WBC 5.6, RBC 3.36 L, Hgb 11.1 L, Hct 34.3 L, MCV 102.1 H, MCH 33.0 H, MCHC 32.4, RDW 14.0, RDW Differential 51.2 H, Plt Count 137 L, MPV 11.3 , Immature Gran % (Auto) 0.500, Neut % (Auto) 73.2 H, Lymph % (Auto) 14.4 L, [place] % (Auto) 9.6, Eos % (Auto) 2.1, Baso % (Auto) 0.2, Absolute Neuts (auto) 4.1, Total Counted Not Reportable 05/23/17 05:00: Sodium 138, Potassium 4.6, Chloride 105, Carbon Dioxide 24.0, BUN 54 H, Creatinine 3.31 H, Est GFR (MDRD) Af Amer 23 L, Est GFR (MDRD) Non-Af 19 L, BUN/Creatinine Ratio 16.3, Glucose 189 H, Calcium 8.6, Phosphorus 3.6 Rhythm: EKG: ECHO: LV function around 55-60% with mild inferolateral hypokinesis consistent with previous echocardiogram, mild increase in pulmonary pressures. Stress Test: Cardiac Cath: PCI: CT Surgery: Holter monitor: EPS: PPM: CXR: Chest CT Scan: Assessment/Plan 1. Congestive heart failure: The patient has progressively worsening hypertensive and LV dysfunction induced dyspnea on exertion, shortness of breath , and evidence of pulmonary edema on physical exam as well as chest x-ray. Patient has chronic renal insufficiency with an estimated GFR of less than 20, and uncontrolled hypertension. Although the patient's symptoms began to occur after inducing low-dose lisinopril last , he has still remained hypertensive over the weekend with blood pressures in the systolic range between 150 and 170 per his daughter. Patient had successful symptomatic relief with antihypertensive therapy in the form of Imdur 30 mg a day as well as IV Lasix therapy. I agree with changing his IV Lasix to Lasix 40 mg p.o. twice daily to maintain fluid status. Recommend continuing gentle diuresis to avoid acute on chronic renal failure. In addition given his renal insufficiency I would recommend discontinuation of lisinopril and initiation of a combination of Imdur/hydralazine for better hypertensive control and afterload reduction. Patient is not on a beta-castillo at this time given his bradycardia, and amiodarone is being used as his beta- castillo. Patient has never had pulmonary function test to my knowledge and he is a lifelong non-smoker. 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 2. Coronary artery disease: The patient has a history of GI bleeding in 2015 and is currently on a baby aspirin tolerating this well. His hemoglobin is stable. At the time of his previous admission I had a long and thorough discussion with the patient and family regarding catheterization to identify possible areas of correctable coronary artery disease and it was declined at that time. In addition the patient is a [employer]. Recommend holding off on catheterization at this time. 3. Hyperlipidemia: Given his risk factors his LDL should be less than 70. Continue Zocor. 4. Thank you very much for the opportunity to put dissipate in the cardiac care of your patient. Patient may be discharged home once off of oxygen. Code Visit Inpatient E&M: 91791 Subs Hosp L2
[2017-05-23 12:35] LABS: Bedside Glucose 219 mg/dL (70-110)
--- NOTE | 2017-05-23 15:37 | CASEMGMT ---
AMAURY spoke with [facility] and there will not be a bed for patient until Sunday and per physician patient will not need to be in the hospital until Sunday. AMAURY called patient's daughter, Katie, and left her a voice mail letting her know and requesting a return call. Plan: SNF. Isabel LACEY
[2017-05-23 16:10] LABS: Bedside Glucose 336 mg/dL (70-110)
[2017-05-23 19:51] LABS: Bedside Glucose 358 mg/dL (70-110)
[2017-05-23] MEDS: Atorvastatin Calcium 20 MG Tablet PO (21:29)
[2017-05-23 21:51] LABS: Bedside Glucose 412 mg/dL (70-110)
[2017-05-23 22:11] LABS: Bedside Glucose 358 mg/dL (70-110)
[2017-05-24] VITALS (17 sets, daily range): BP systolic 120–139; BP diastolic 45–73; PULSE 57–72; RESP 16–20; TEMP 36.3–36.9; O2SAT 93–95
[2017-05-24 00:55] LABS: Bedside Glucose 206 mg/dL (70-110)
[2017-05-24 06:02] LABS: Anion Gap 9 (5-15); BUN 59 mg/dL (7-18); BUN/Creat Ratio 15.3 RATIO (10-20); Calcium,Total 9.2 mg/dL (8.5-10.1); Chloride 104 mmol/L (98-107); Creatinine, Serum 3.85 mg/dL (0.70-1.30); EST Glomerular Filtration Rate 16 mL/min (>60); Est Glom Filt Rate - Afr Amer 20 mL/min (>60); Estimated Creatinine Clearance 13.81 ml/min; Glucose 111 mg/dL (70-110); Potassium 4.6 mmol/L (3.5-5.1); Sodium Level 138 mmol/L (136-145)
[2017-05-24 06:51] LABS: Bedside Glucose 82 mg/dL (70-110)
--- NOTE | 2017-05-24 08:30 | PCM.PN.REN ---
Patient Problems: Active and Suspected Problems Shortness of breath (Acute) Subjective: Denies shortness of breath or chest discomfort. Appetite good. No nausea or vomiting. - Physical Exam General: Alert, Disoriented - History of dementia Oral: Dry Mucosa Neck: Supple, No JVD Lungs: Clear to auscultation Cardiovascular: Regular rate Abdomen: Bowel Sounds Present, Soft, Non Tender, Non-Distended Extremities: No edema Skin: No rashes Musculoskeletal: No Muscle Wasting Neurological: Cranial nerves II-XII grossly intact Psych/Mental Status: - - Confused Vital Signs Temp Pulse Resp BP Pulse Ox 97.6 F L 61 18 124/54 H 94 05/24/17 05:45 05/24/17 07:42 05/24/17 05:45 05/24/17 05:48 05/24/17 06:35 Oxygen Flow Rate 2 Oxygen Delivery Method Nasal Cannula Weight: 81.6 kg Body Mass Index (BMI) 29.8 Intake and Output for Last 24 Hours 05/22/17 05/23/17 05/24/17 23:59 23:59 23:59 Intake Total 494 / 494 1200 / 1200 700 / 700 Output Total 1670 / 1670 1700 / 1700 650 / 650 Balance -1176 / -1176 -500 / -500 50 / 50 Microbiology Past 72 Hours 05/22/17 07:55 Influenza Types A,B Direct FA (ROBETRO) - Final Mucosa - Nose Laboratory Tests Past 24 Hrs 05/22/17 05/23/17 05/23/17 08:05 05:00 05:00 Sodium Potassium Chloride Carbon Dioxide Anion Gap BUN Creatinine Estim Creat Clear Calc Est GFR (MDRD) Af Amer Est GFR (MDRD) Non-Af BUN/Creatinine Ratio Glucose Calcium Vitamin B12 227 Vitamin D 25-Hydroxy 17.4 PTH Intact 391.8 H 05/24/17 05:00 Sodium 138 Potassium 4.6 Chloride 104 Carbon Dioxide 25.0 Anion Gap 9 BUN 59 H Creatinine 3.85 H Estim Creat Clear Calc 13.81 Est GFR (MDRD) Af Amer 20 L Est GFR (MDRD) Non-Af 16 L BUN/Creatinine Ratio 15.3 Glucose 111 H Calcium 9.2 Vitamin B12 Vitamin D 25-Hydroxy PTH Intact POC Glucose 05/24/17 05/24/17 05/23/17 06:45 00:49 22:08 POC Glucose 82 206 H 358 H 05/23/17 05/23/17 05/23/17 21:22 19:40 16:05 POC Glucose 412 H 358 H 336 H 05/23/17 12:24 POC Glucose 219 H Assessment/Plan Active and Suspected Problems Shortness of breath (Acute) 1. 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 Creatinine increase from 2.8 to 3.8 today. Recommend to hold Lasix. Oxygenation stable with improved CHF pattern on CXR. No urgency to initiate dialysis. He has no uremic symptoms. Continue to monitor his renal function off diuretics. Will need to discuss with patient daughter regarding dialysis option. 2. HTN stable 3. 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 Lisinopril on hold due to worsening renal fxn 4. Acute on chronic CHF. stabilized with iv lasix. Cardiology following 5. CAD with cardiomyopathy EF 35% 2014. Echo performed this admission showed an EF of 55-60% with hypokinesis and inferior wall. Cardiology following. 6. Dementia poor historian. 7. 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 Start calcitriol 8. Vit D def start ergocalciferol
[2017-05-24] MEDS: Ascorbic Acid 500 MG Tablet 250 MG PO (09:08)
[2017-05-24] MEDS: Aspirin 81 MG TAB.CHEW PO (09:08)
--- NOTE | 2017-05-24 09:11 | CASEMGMT ---
AMAURY spoke with patient's daughter this am. She asked if AMAURY could make a referral to [facility]. AMAURY faxed referral to [facility] and let Kia know referral was coming. Isabel MOORE MSW
[2017-05-24] MEDS: Amiodarone 200 MG Tablet PO (10:06)
[2017-05-24] MEDS: 0.9% NaCl Peripheral Flush Adult/Peds IV (10:06)
[2017-05-24] MEDS: Heparin Injection 5,000 UNITS/ML Syringe 5000 UNITS SC ×2 (10:06→21:15)
[2017-05-24] MEDS: Isosorbide Mononitrate 30 MG Tablet PO (10:07)
[2017-05-24] MEDS: Pantoprazole Sodium 40 MG Tablet PO (10:07)
[2017-05-24] MEDS: Calcitriol 0.25 MCG Capsule PO (10:07)
--- NOTE | 2017-05-24 11:28 | CASEMGMT ---
Received a message from Kia with questions on patient. AMAURY called her and left her a vm answering her questions. Await return call. Isabel MOORE MSW
--- NOTE | 2017-05-24 11:59 | PCM.PROGNOTE ---
Patient Problems: Active and Suspected Problems Shortness of breath (Acute) Subjective: All events of the past 24 hours of been reviewed. He is afebrile with stable vital signs. Blood pressure is well controlled with the addition of Imdur and hydralazine to the drug regimen. He is 94% saturated on room air. Creatinine is now up to 3.85 after diuresis. Lasix was discontinued by Dr. Hawk. Lisinopril was already discontinued. - Physical Exam General: Alert, Cooperative, No apparent distress, Well developed, Well nourished HEENT: Atraumatic, Normocephalic Oral: Dry Mucosa Neck: Supple, No JVD, Trachea Midline Lungs: Rales - coarse crackles in the bases that are unchanged after several deep breaths and are likely due to scarring in the bases Cardiovascular: Regular Rhythm, Normal S1, Normal S2, No Gallop Abdomen: Bowel Sounds Present, Soft, Non Tender, Non-Distended Extremities: Edema - trace edema at the sock line Skin: No rashes, No breakdown Vital Signs Temp Pulse Resp BP Pulse Ox 97.5 F L 64 18 126/73 H 94 05/24/17 11:38 05/24/17 11:38 05/24/17 11:38 05/24/17 11:38 05/24/17 11:38 Oxygen Flow Rate 2 Oxygen Delivery Method Nasal Cannula Weight: 179 lb 14.355 oz Body Mass Index (BMI) 29.8 Intake and Output for Last 24 Hours 05/22/17 05/23/17 05/24/17 23:59 23:59 23:59 Intake Total 494 / 494 1200 / 1200 1000 / 1000 Output Total 1670 / 1670 1700 / 1700 650 / 650 Balance -1176 / -1176 -500 / -500 350 / 350 Microbiology Past 72 Hours 05/22/17 07:55 Influenza Types A,B Direct FA (ROBERTO) - Final Mucosa - Nose Laboratory Tests Past 24 Hrs 05/24/17 05:00 Sodium 138 Potassium 4.6 Chloride 104 Carbon Dioxide 25.0 Anion Gap 9 BUN 59 H Creatinine 3.85 H Estim Creat Clear Calc 13.81 Est GFR (MDRD) Af Amer 20 L Est GFR (MDRD) Non-Af 16 L BUN/Creatinine Ratio 15.3 Glucose 111 H Calcium 9.2 POC Glucose 05/24/17 05/24/17 05/23/17 06:45 00:49 22:08 POC Glucose 82 206 H 358 H 05/23/17 05/23/17 05/23/17 21:22 19:40 16:05 POC Glucose 412 H 358 H 336 H 05/23/17 12:24 POC Glucose 219 H Assessment/Plan Active and Suspected Problems Shortness of breath (Acute) 1. Acute CHF exacerbation - EF is normal. uspect diastolic CHF due to uncontrolled HTN. Cardiology following. No lisinopril with worsening renal failure. He is not on a beta-castillo, will defer with acute exacerbation, and cardiology notes not advised given his bradycardia and current amiodarone therapy. Continue hydralazine, Imdur. 2. PIPPA on CKD stage IV- Dr. Hawk consulted. No lisinopril. Renal US with no acute changes. DC the lasix 3. History of CAD-history of non-ST segment elevation myocardial infarction. Will continue new aspirin, atorvastatin. LDL at goal, 43 4. On admission he had Hypertensive crisis as evidenced by BP > 180 systolic and heart failure. This is now resolved with the addition of new antihypertensive agents. BP is well controlled with the addition of hydralazine and Imdur to the drug regimen 5. Type 2 diabetes- A1C demonstrates poor control Levemir started but the FBS was a little low today so will decrease the dose form 30 to 26 units. 6. Macrocytic anemia, folate negative, b12 pending. Recheck renal profile in the AM possible DC IF the creat is improving. May need to just give Lasix PRN if the weight increases. Code Visit Inpatient E&M: [id number] Subs Hosp L2
[2017-05-24 12:21] LABS: Bedside Glucose 116 mg/dL (70-110)
[2017-05-24] MEDS: Ipratropium/Albuterol Sulfate 3 ML AMPUL.NEB INHALATION ×2 (13:22→19:11)
[2017-05-24] MEDS: Menthol/Lanolin/Calamine/Znox 113 GM Tube 1 APPLIC TOPICAL ×2 (13:22→21:15)
--- NOTE | 2017-05-24 13:55 | CASEMGMT ---
W is not able to take patient. SW spoke with patient's daughter and let her know. She was okay with SW making a referral to [facility]. SW will make referral to [facility]. Isabel MOORE MSW
[2017-05-24 16:55] LABS: Bedside Glucose 257 mg/dL (70-110)
--- NOTE | 2017-05-24 18:59 | PCM.PN.CARD ---
Subjectve: The patient appears to be awake and alert at this time. He denies ongoing chest discomfort. He believes his breathing has improved overall. Objective: Vital Signs Temp Pulse Resp BP Pulse Ox 98.1 F 61 16 139/65 H 95 05/24/17 17:38 05/24/17 17:38 05/24/17 17:38 05/24/17 17:38 05/24/17 17:38 Oxygen Flow Rate 2 Oxygen Delivery Method Nasal Cannula Weight: 179 lb 14.355 oz Body Mass Index (BMI) 29.8 Intake and Output for Last 24 Hours 05/22/17 05/23/17 05/24/17 23:59 23:59 23:59 Intake Total 494 / 494 1200 / 1200 1380 / 1380 Output Total 1670 / 1670 1700 / 1700 650 / 650 Balance -1176 / -1176 -500 / -500 730 / 730 General: Awake, Cooperative, No Acute Distress Neck: No JVD Lungs: Diminished Malcom Bases Cardiovascular: Regular Rhythm, Normal S1, Normal S2 Abdomen: Bowel Sounds Present, Soft, Non Tender Extremities: Mild RLE Edema, Mild LLE Edema 05/24/17 05:00: Sodium 138, Potassium 4.6, Chloride 104, Carbon Dioxide 25.0, Anion Gap 9, BUN 59 H, Creatinine 3.85 H, Est GFR (MDRD) Af Amer 20 L, Est GFR (MDRD) Non-Af 16 L, BUN/Creatinine Ratio 15.3, Glucose 111 H, Calcium 9.2 Rhythm: Sinus rhythm Assessment/Plan 1. CAD The patient has a history of CAD. He has been treated medically. He appears to be without acute symptoms at this time. 2. CHF The patient has been diagnosed with CHF. He has been undergoing noninvasive evaluation and medical management. His medical management does include input from nephrology with respect to his underlying renal insufficiency and medical therapy. 3. Hyperlipidemia He will continue medical management and follow-up as deemed appropriate. 4. Renal insufficiency His case was discussed with Dr. Hawk. She is adjusting his diuretics. He will need follow-up BMP. Comment: The above was discussed and evaluated with the patient. This note was generated with [employer] software. It may contain incorrect words, spelling, and punctuation that were not noted in checking the note before signing.
--- NOTE | 2017-05-24 19:02 | PN.CARD_ITS ---
Subjectve: The patient appears to be awake and alert at this time. He denies ongoing chest discomfort. He believes his breathing has improved overall. Objective: Vital Signs Temp Pulse Resp BP Pulse Ox 98.1 F 61 16 139/65 H 95 05/24/17 17:38 05/24/17 17:38 05/24/17 17:38 05/24/17 17:38 05/24/17 17:38 Oxygen Flow Rate 2 Oxygen Delivery Method Nasal Cannula Weight: 179 lb 14.355 oz Body Mass Index (BMI) 29.8 Intake and Output for Last 24 Hours 05/22/17 05/23/17 05/24/17 23:59 23:59 23:59 Intake Total 494 / 494 1200 / 1200 1380 / 1380 Output Total 1670 / 1670 1700 / 1700 650 / 650 Balance -1176 / -1176 -500 / -500 730 / 730 General: Awake, Cooperative, No Acute Distress Neck: No JVD Lungs: Diminished Malcom Bases Cardiovascular: Regular Rhythm, Normal S1, Normal S2 Abdomen: Bowel Sounds Present, Soft, Non Tender Extremities: Mild RLE Edema, Mild LLE Edema 05/24/17 05:00: Sodium 138, Potassium 4.6, Chloride 104, Carbon Dioxide 25.0, Anion Gap 9, BUN 59 H, Creatinine 3.85 H, Est GFR (MDRD) Af Amer 20 L, Est GFR ( MDRD) Non-Af 16 L, BUN/Creatinine Ratio 15.3, Glucose 111 H, Calcium 9.2 Rhythm: Sinus rhythm Assessment/Plan 1. CAD The patient has a history of CAD. He has been treated medically. He appears to be without acute symptoms at this time. 2. CHF The patient has been diagnosed with CHF. He has been undergoing noninvasive evaluation and medical management. His medical management does include input from nephrology with respect to his underlying renal insufficiency and medical therapy. 3. Hyperlipidemia He will continue medical management and follow-up as deemed appropriate. 4. Renal insufficiency His case was discussed with Dr. Hawk. She is adjusting his diuretics. He will need follow-up BMP. Comment: The above was discussed and evaluated with the patient. This note was generated with [employer] software. It may contain incorrect words, spelling, and punctuation that were not noted in checking the note before signing.
[2017-05-24] MEDS: Atorvastatin Calcium 20 MG Tablet PO (21:22)
[2017-05-24 21:31] LABS: Bedside Glucose 275 mg/dL (70-110)
[2017-05-25] VITALS (16 sets, daily range): BP systolic 123–154; BP diastolic 66–70; PULSE 61–78; RESP 16–21; TEMP 36.4–36.7; O2SAT 91–96
[2017-05-25 05:55] LABS: Anion Gap 9 (5-15); BUN 56 mg/dL (7-18); BUN/Creat Ratio 14.9 RATIO (10-20); Calcium,Total 9.1 mg/dL (8.5-10.1); Chloride 104 mmol/L (98-107); Creatinine, Serum 3.77 mg/dL (0.70-1.30); EST Glomerular Filtration Rate 17 mL/min (>60); Est Glom Filt Rate - Afr Amer 20 mL/min (>60); Glucose 166 mg/dL (70-110); Sodium Level 139 mmol/L (136-145)
[2017-05-25] MEDS: Menthol/Lanolin/Calamine/Znox 113 GM Tube 1 APPLIC TOPICAL ×3 (06:27→21:27)
[2017-05-25 06:46] LABS: Bedside Glucose 128 mg/dL (70-110)
[2017-05-25] MEDS: Ipratropium/Albuterol Sulfate 3 ML AMPUL.NEB INHALATION ×2 (06:49→12:38)
[2017-05-25] MEDS: Ascorbic Acid 500 MG Tablet 250 MG PO (08:27)
[2017-05-25] MEDS: Aspirin 81 MG TAB.CHEW PO (08:27)
--- NOTE | 2017-05-25 09:20 | CASEMGMT ---
AMAURY spoke with Michelle at [facility] and she said they can take patient. AMAURY received a phone call from Temi from [facility] and she approved patient to go to accepting SNF. AMAURY called patient's daughter Katie and let her know [facility] can take patient. AMAURY told her SW will let her know when he will be going. Plan: d/c to [facility] when ready. Isabel MOORE MSW
[2017-05-25] MEDS: Calcitriol 0.25 MCG Capsule PO (11:11)
[2017-05-25] MEDS: Amiodarone 200 MG Tablet PO (11:12)
[2017-05-25] MEDS: Pantoprazole Sodium 40 MG Tablet PO (11:12)
[2017-05-25] MEDS: Heparin Injection 5,000 UNITS/ML Syringe 5000 UNITS SC ×2 (11:12→21:37)
[2017-05-25] MEDS: Isosorbide Mononitrate 30 MG Tablet PO (11:12)
[2017-05-25 11:30] LABS: Bedside Glucose 127 mg/dL (70-110)
--- NOTE | 2017-05-25 15:03 | CASEMGMT ---
Patient's daughter will be in after 4p today to talk with Dr Hawk. AMAURY called Michelle at [facility] and let her know patient will be coming after dinner. AMAURY put green sheet on chart with instructions. Convalescent completed. All in agreement with d/c plan. Plan: d/c to [facility] under skilled level of care on a convalescent. Staff to set up transport. Isabel MOORE MSW
--- NOTE | 2017-05-25 16:27 | PCM.PN.REN ---
Patient Problems: Active and Suspected Problems Shortness of breath (Acute) Subjective: dyspneic with exertion, therapy. Denied chest pain, nausea, vomiting. Discussed dialysis option with pt but need further discussion with the pt's daughter. Creatinine slightly improved today off lasix but suspect may need to resume sometime soon. Will continue to monitor volume status and renal fxn while off diuretics. - Physical Exam General: Alert Oral: Moist Mucosa Neck: No JVD Lungs: Diminished Cardiovascular: Regular rate Abdomen: Bowel Sounds Present, Soft, Non Tender, Non-Distended Extremities: Edema - trace Skin: No rashes Musculoskeletal: No Muscle Wasting, - - muscle weakness Neurological: Cranial nerves II-XII grossly intact, - - no tremor Psych/Mental Status: Flat Affect Vital Signs Temp Pulse Resp BP Pulse Ox 97.7 F L 67 18 123/67 H 96 05/25/17 14:30 05/25/17 15:57 05/25/17 14:30 05/25/17 15:54 05/25/17 14:30 Oxygen Flow Rate 2 Oxygen Delivery Method Nasal Cannula Weight: 82.3 kg Body Mass Index (BMI) 29.8 Intake and Output for Last 24 Hours 05/23/17 05/24/17 05/25/17 23:59 23:59 23:59 Intake Total 1200 / 1200 1380 / 1380 400 / 400 Output Total 1700 / 1700 650 / 650 1705 / 1705 Balance -500 / -500 730 / 730 -1305 / -1305 Laboratory Tests Past 24 Hrs 05/25/17 05:05 Sodium 139 Potassium 5.0 Chloride 104 Carbon Dioxide 26.0 Anion Gap 9 BUN 56 H Creatinine 3.77 H Estim Creat Clear Calc 14.10 Est GFR (MDRD) Af Amer 20 L Est GFR (MDRD) Non-Af 17 L BUN/Creatinine Ratio 14.9 Glucose 166 H Calcium 9.1 POC Glucose 05/25/17 05/25/17 05/24/17 11:14 06:43 21:12 POC Glucose 127 H 128 H 275 H 05/24/17 16:48 POC Glucose 257 H Assessment/Plan Active and Suspected Problems Shortness of breath (Acute) 1. 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 Creatinine increase from 2.8 to 3.8 yesterday, 3.77 today off lasix. Continue to monitor his renal function off diuretics. Will need to discuss with patient's daughter regarding dialysis option. Discussed briefly with the patient today 2. HTN stable 3. 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 Lisinopril on hold due to worsening renal fxn 4. Acute on chronic CHF. stabilized with iv lasix. Cardiology following 5. CAD with cardiomyopathy EF 35% 2014. Echo performed this admission showed an EF of 55-60% with hypokinesis and inferior wall. Cardiology following. 6. Dementia poor historian. 7. 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 Started calcitriol 8. Vit D def start ergocalciferol DW hospitalist. Await call back from pt daughter
[2017-05-25 17:26] LABS: Bedside Glucose 88 mg/dL (70-110)
--- NOTE | 2017-05-25 18:14 | PN_ITS ---
Patient Problems: Active and Suspected Problems Shortness of breath (Acute) Subjective: All events of the past 24 hours of been reviewed. He is afebrile and his vital signs are stable. The blood pressure is very well controlled. He has no complaints. He stares a lot and is confused. Dtr states that the confusion recently got much worse. She is no longer able to care for him at home and she works. We discussed HD vs no HD and the potential benefits. She would like her other sister to be involved in the decision making. - Physical Exam General: Alert, No apparent distress, Confused Oral: Dry Mucosa Neck: Supple, Trachea Midline Lungs: - - coarse crackles in the bases otherwise CTA Cardiovascular: Regular rate, Regular Rhythm, Normal S1, Normal S2, No rub noted , No Gallop Abdomen: Bowel Sounds Present, Soft, Non Tender, Non-Distended Extremities: No edema Vital Signs Temp Pulse Resp BP Pulse Ox 97.7 F L 67 18 123/67 H 96 05/25/17 14:30 05/25/17 15:57 05/25/17 14:30 05/25/17 15:54 05/25/17 14:30 Oxygen Flow Rate 2 Oxygen Delivery Method Nasal Cannula Weight: 181 lb 7.047 oz Body Mass Index (BMI) 29.8 Intake and Output for Last 24 Hours 05/23/17 05/24/17 05/25/17 23:59 23:59 23:59 Intake Total 1200 / 1200 1380 / 1380 400 / 400 Output Total 1700 / 1700 650 / 650 1705 / 1705 Balance -500 / -500 730 / 730 -1305 / -1305 Laboratory Tests Past 24 Hrs 05/25/17 05:05 Sodium 139 Potassium 5.0 Chloride 104 Carbon Dioxide 26.0 Anion Gap 9 BUN 56 H Creatinine 3.77 H Estim Creat Clear Calc 14.10 Est GFR (MDRD) Af Amer 20 L Est GFR (MDRD) Non-Af 17 L BUN/Creatinine Ratio 14.9 Glucose 166 H Calcium 9.1 POC Glucose 05/25/17 05/25/17 05/25/17 17:08 11:14 06:43 POC Glucose 88 127 H 128 H 05/24/17 21:12 POC Glucose 275 H Assessment/Plan Active and Suspected Problems Shortness of breath (Acute) 1. Acute CHF exacerbation - EF is normal. suspect diastolic CHF due to uncontrolled HTN. Cardiology following. No lisinopril with worsening renal failure. He is not on a beta-castillo due to his bradycardia and current amiodarone therapy. Continue hydralazine, Imdur. 2. PIPPA on CKD stage IV- Dr. Hawk consulted. No lisinopril. Renal US with no acute changes. Lasix discontinued and the creat has improved a little. 3. History of CAD. History of non-ST segment elevation myocardial infarction. Will continue aspirin, atorvastatin. LDL at goal, 43 4. On admission he had Hypertensive crisis as evidenced by BP > 180 systolic and heart failure. This is now resolved with the addition of new antihypertensive agents. BP is well controlled with the addition of hydralazine and Imdur to the drug regimen 5. Type 2 diabetes- A1C demonstrates poor control BS's are in much better control. Will continue to adjust insulin as needed. 6. Macrocytic anemia, folate negative, b12 very low normal Recheck renal profile in the AM Supplement the B12 orally and recheck in a few weeks. If it is no better consider parenteral B12. Will meet with the family, pt and Dr. Hawk in the AM and discuss HD. If no HD may want a hospice consult. Code Visit Inpatient E&M: 35760 [facility] Hosp L1
--- NOTE | 2017-05-25 18:55 | NURSING ---
Updated Dr. Rios of patient's blood sugar of 88 at supper and insulin held for same.
--- NOTE | 2017-05-25 20:51 | PN.CARD_ITS ---
Subjectve: The patient appears to be awake and alert at this time. He has no new acute complaints. Objective: Vital Signs Temp Pulse Resp BP Pulse Ox 97.6 F L 70 18 125/70 H 96 05/25/17 20:29 05/25/17 20:29 05/25/17 20:29 05/25/17 20:29 05/25/17 20:29 Oxygen Flow Rate 3 Oxygen Delivery Method Nasal Cannula Weight: 181 lb 7.047 oz Body Mass Index (BMI) 29.8 Intake and Output for Last 24 Hours 05/23/17 05/24/17 05/25/17 23:59 23:59 23:59 Intake Total 1200 / 1200 1380 / 1380 645 / 645 Output Total 1700 / 1700 650 / 650 2054 / 2054 Balance -500 / -500 730 / 730 -1410 / -1410 General: Awake, Cooperative, No Acute Distress Lungs: Rales - Malcom Bases Cardiovascular: Regular Rhythm, Normal S1, Normal S2 Abdomen: Bowel Sounds Present, Soft, Non Tender Extremities: Trace RLE Edema, Trace LLE Edema 05/25/17 05:05: Sodium 139, Potassium 5.0, Chloride 104, Carbon Dioxide 26.0, Anion Gap 9, BUN 56 H, Creatinine 3.77 H, Est GFR (MDRD) Af Amer 20 L, Est GFR ( MDRD) Non-Af 17 L, BUN/Creatinine Ratio 14.9, Glucose 166 H, Calcium 9.1 Rhythm: Sinus rhythm Assessment/Plan 1. CAD The patient has a history of CAD. He has been treated medically. He appears to be without acute symptoms at this time. 2. CHF The patient has been diagnosed with CHF. He has been undergoing noninvasive evaluation and medical management. He appears to be without significant change this day. He has continued medical management with input from nephrology with respect to diuretic therapy and his renal function. 3. Hyperlipidemia He will continue medical management and follow-up as deemed appropriate. 4. Renal insufficiency His creatinine level remains elevated. His diuretics have been on hold. Depending upon his clinical course, with respect to his symptoms of volume status, and his renal function and his medications consideration will have to be given as to whether or not he requires continued medical management with adjustment versus consideration for additional volume management with ultrafiltration or hemodialysis. Comment: The above was discussed and evaluated with the patient. This note was generated with [employer] software. It may contain incorrect words, spelling, and punctuation that were not noted in checking the note before signing.
[2017-05-25] MEDS: Acetaminophen 325 MG Tablet 650 MG PO (21:31)
[2017-05-25] MEDS: Atorvastatin Calcium 20 MG Tablet PO (21:37)
[2017-05-25 22:01] LABS: Bedside Glucose 144 mg/dL (70-110)
[2017-05-26] VITALS (13 sets, daily range): BP systolic 139–160; BP diastolic 65–70; PULSE 62–68; RESP 16–18; TEMP 36.7–36.9; O2SAT 94–96
[2017-05-26 05:41] LABS: Hemoglobin 10.6 g/dl (13.0-16.5); Mean Corp Hgb Conc 31.2 g/gl (32-36); Mean Corpuscular Hgb 32.2 pg (27.0-32.0); Mean Corpuscular Volume 103.3 fL (80-94); Platelet Count 134 K/mm3 (150-450); RBC Distribution Width CV 14.3 % (11.6-14.6); RBC Distribution Width SD 52.4 fl (35.1-43.9); Red Blood Count 3.29 M/mm3 (4.6-6.2); White Blood Count 5.2 K/mm3 (4.4-11.0)
[2017-05-26 05:45] LABS: Scan Indicated on CBC? Y/N NO
[2017-05-26] MEDS: Menthol/Lanolin/Calamine/Znox 113 GM Tube 1 APPLIC TOPICAL ×2 (05:54→13:22)
[2017-05-26 06:03] LABS: Albumin, Serum 2.8 g/dL (3.4-5.0); BUN 53 mg/dL (7-18); BUN/Creat Ratio 14.4 RATIO (10-20); Calcium,Total 9.3 mg/dL (8.5-10.1); Chloride 105 mmol/L (98-107); Creatinine, Serum 3.68 mg/dL (0.70-1.30); EST Glomerular Filtration Rate 17 mL/min (>60); Est Glom Filt Rate - Afr Amer 21 mL/min (>60); Estimated Creatinine Clearance 14.45 ml/min; Glucose 95 mg/dL (70-110); Potassium 5.1 mmol/L (3.5-5.1); Sodium Level 140 mmol/L (136-145)
[2017-05-26] MEDS: Ipratropium/Albuterol Sulfate 3 ML AMPUL.NEB INHALATION ×2 (06:46→13:06)
[2017-05-26 06:56] LABS: Bedside Glucose 82 mg/dL (70-110)
[2017-05-26] MEDS: Magnesium Hydroxide 30 ML UDC PO (08:31)
[2017-05-26] MEDS: Aspirin 81 MG TAB.CHEW PO (08:33)
[2017-05-26] MEDS: Cyanocobalamin 500 MCG Tablet 1000 MCG PO (08:34)
[2017-05-26] MEDS: Ascorbic Acid 500 MG Tablet 250 MG PO (08:34)
[2017-05-26] MEDS: Calcitriol 0.25 MCG Capsule PO (08:35)
[2017-05-26] MEDS: Amiodarone 200 MG Tablet PO (08:35)
[2017-05-26] MEDS: Isosorbide Mononitrate 30 MG Tablet PO (08:35)
[2017-05-26] MEDS: Pantoprazole Sodium 40 MG Tablet PO (08:35)
[2017-05-26] MEDS: Heparin Injection 5,000 UNITS/ML Syringe 5000 UNITS SC (08:43)
--- NOTE | 2017-05-26 09:48 | PCM.PN.REN ---
Patient Problems: Active and Suspected Problems Shortness of breath (Acute) Subjective: Patient denies any shortness of breath or chest pain. Edema under control without diuretic therapy. Patient's 2 daughters at bedside. Discussed dialysis option. Due to his advanced age and multiple comorbidities they have decided on conservative medical management at this time. We will have him transferred to [facility] for rehab and see how he does with this. They are considering permanent ECF placement. Discussed possible hospice option if his medical condition deteriorates. At this time there is no urgent need for dialysis. Creatinine slightly improved off diuretic therapy. However he is at risk of recurrent hospitalizations for fluid overload, congestive heart failure due to his advanced kidney disease. - Physical Exam General: Alert, Confused Oral: Moist Mucosa Neck: Supple, No JVD Lungs: Clear to auscultation Cardiovascular: Regular rate, No rub noted Abdomen: Bowel Sounds Present, Soft, Non Tender, Non-Distended Extremities: No edema Skin: No rashes Neurological: Cranial nerves II-XII grossly intact Psych/Mental Status: Appropriate, - Vital Signs Temp Pulse Resp BP Pulse Ox 98.5 F 68 18 140/65 H 94 05/26/17 08:25 05/26/17 08:25 05/26/17 08:25 05/26/17 08:25 05/26/17 08:25 Oxygen Flow Rate 2 Oxygen Delivery Method Nasal Cannula Weight: 81.4 kg Body Mass Index (BMI) 29.8 Intake and Output for Last 24 Hours 05/24/17 05/25/17 05/26/17 23:59 23:59 23:59 Intake Total 1380 / 1380 645 / 645 Output Total 650 / 650 2330 / 2330 450 / 450 Balance 730 / 730 -1685 / -1685 -450 / -450 Laboratory Tests Past 24 Hrs 05/26/17 05/26/17 05:24 05:24 WBC 5.2 RBC 3.29 L Hgb 10.6 L Hct 34.0 L MCV 103.3 H MCH 32.2 H MCHC 31.2 L RDW 14.3 RDW Differential 52.4 H Plt Count 134 L MPV 11.0 Sodium 140 Potassium 5.1 Chloride 105 Carbon Dioxide 27.0 BUN 53 H Creatinine 3.68 H Estim Creat Clear Calc 14.45 Est GFR (MDRD) Af Amer 21 L Est GFR (MDRD) Non-Af 17 L BUN/Creatinine Ratio 14.4 Glucose 95 Calcium 9.3 Phosphorus 4.0 Albumin 2.8 L POC Glucose 05/26/17 05/25/17 05/25/17 06:47 21:30 17:08 POC Glucose 82 144 H 88 05/25/17 11:14 POC Glucose 127 H Assessment/Plan Active and Suspected Problems Shortness of breath (Acute) 1. 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 Creatinine increase from 3.8 to 3.68 today off lasix. Continue to monitor his renal function off diuretics. Discussed with patient's daughter regarding dialysis option this morning. He does have advanced kidney disease at stage IV-V with GFR at 14-17 cc/min. Currently without uremic symptoms and volume status is stable. However patient at risk for recurrent hospitalizations for fluid overload due to advanced kidney disease. For now we will continue conservative management without dialysis. Family is leaning towards no dialysis due to his advanced age and comorbidities. 2. HTN stable 3. 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 Lisinopril on hold due to worsening renal fxn 4. Acute on chronic CHF. stabilized 5. CAD with cardiomyopathy EF 35% 2014. Repeat echo this admission showed an EF of 55-60% with hypokinesis and inferior wall. Cardiology following. 6. Dementia poor historian. 7. 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 Continue calcitriol 8. Vit D def continue ergocalciferol DW hospitalist. Patient with follow-up appointment with me on May 29 at 10 AM in the office. Okay to DC to [facility] today
--- NOTE | 2017-05-26 10:03 | CASEMGMT ---
Social Work: Phone call received from Dr. Hawk this morning to request for SW to meet with family in patient's room to address their questions regarding patient discharge to [facility] today. SW met with patient, 2 daughters and their ambulance driver paramedic in room with patient's stated consent; introduced self and SW role at [facility]. Daughters inquired if SNF will provide transportation for patient today and to any subsequent medical appointments; they report that they are unable to provide transportation for patient. SW advised that hospital staff can arrange an ambulette/ambulance, whichever is deemed necessary by physician, upon hospital discharge and that the fci can make arrangements for any needed transportation for patient as well. SW encouraged daughters to talk with Admission's Coordinator at [facility] regarding transportation needs. Daughters also inquired about possibility of patient remaining at [facility] for long-term care, if needed, and SW advised that this could be an option and encouraged them to discuss this with Admission Coordinator as well. Daughters inquired about a discharge time for today. SW explained that a discharge time can not be arranged until physician orders are in place and nursing report has been called; advised that patient's nurse can keep them updated and also notified charge nurse that daughter's are requesting this information. Daughters and patient voiced understanding of information provided. They denied any further questions, concerns or unmet needs. Mike WARE,SHAILESH
[2017-05-26 12:02] LABS: Bedside Glucose 101 mg/dL (70-110)
--- NOTE | 2017-05-26 12:04 | PCM.TXEXTCAR ---
- Diet 05/22/17 06:08 Diet: carb controlled, low salt, RENAL diet, 1500 cc per day fluid restriction Food consistency:: Regular Liquid Consistency:: Regular/Thin - Routine Orders/Code Status Enema Type: Fleetz Enema Frequency: Daily PRN Suppository Type: Dulcolax 10mg Suppository Frequency: Daily PRN O2 Liters per Minute: 2 O2 Frequency: PRN Keep PO Greater than or Equal to (%): 89 Routine Lab Work: - - BMP 05/28 and then every 7 days X3 BMP on 06/04 Code Status: [facility] - Wound(s) LEFT LAKE Wound Type: Abrasion LEFT ANKLE Wound Type: MULTIPLE SCRATCHES - Therapies Weight Bearing: Full weight bearing Physical Therapy: Eval and Treat Occupational Therapy: Eval and Treat - Problem/Diagnosis (1) Dementia Status: Chronic Current Visit: Yes (2) Hypertension Status: Chronic Current Visit: Yes (3) CHF (congestive heart failure) Status: Acute Current Visit: No (4) NSTEMI (non-ST elevated myocardial infarction) Status: Acute Current Visit: No (5) Pneumonia, community acquired Status: Acute Current Visit: No (6) Generalized weakness Status: Chronic Current Visit: No (7) Acute kidney injury superimposed on CKD Status: Acute Current Visit: Yes (8) Kidney disease, chronic, stage IV (GFR 15-29 ml/min) Status: Chronic Current Visit: Yes (9) Macrocytic anemia with vitamin B12 deficiency Status: Acute Current Visit: Yes (10) Hypertensive emergency Status: Acute Current Visit: Yes (11) Diastolic congestive heart failure Status: Acute Current Visit: Yes (12) Diabetes mellitus type 2 in nonobese Status: Acute Current Visit: Yes (13) CAD (coronary artery disease) Status: Chronic Current Visit: Yes (14) Dyslipidemia Status: Chronic Current Visit: Yes (15) Left ventricular hypertrophy Status: Chronic Comment: Mild Current Visit: Yes - Allergies/Procedures Done in Hospital Allergies/Adverse Reactions: Allergies cefadroxil Allergy (Unknown, Verified 05/22/17 04:31) Unknown fexofenadine HCl [From Rosa] Allergy (Unknown, Verified 05/22/17 04:31) Unknown erythromycin base Allergy (Verified 05/22/17 04:31) Unknown Procedures: 2-D Echocardiogram - Mild concentric left ventricular hypertrophy, ejection fraction 55-60%, regional wall motion abnormalities, right ventricular pressure estimated at 33, no significant valvular heart disease. - Type of Care/Length of Stay Estimated LOS: Convalescent Care Less Than 30 days Type of Care Needed: Skilled Rehab Potential: Fair Prognosis: Fair - Additional Orders/Day of Discharge Additional Orders: QID blood sugars, AC and HS H&P will serve as current which was dated: 05/22/17 Day of Discharge: 05/26/17 - Dietary and Speech Recommendations Dietitian Recommendations/Changes: Rec diet change to CHO controlled, low sodium diet w/ fluid restriction as indicated. - Follow Up Care Primary Care Physician: Ambrocio Lieberman MD [Primary Care Provider] - Please follow up with your Primary Care Physician in: following DC from SNF Please Follow Up With: Nicole Hawk DO When: may 29 at 10 AM
--- NOTE | 2017-05-26 12:17 | PCM.DC.SUM ---
Discharge Date and Diagnosis - Problem List Patient Problems: Active and Suspected Problems Acute kidney injury superimposed on CKD (Acute) Macrocytic anemia with vitamin B12 deficiency (Acute) Hypertensive emergency (Acute) Diastolic congestive heart failure (Acute) Diabetes mellitus type 2 in nonobese (Acute) Date of Admission: 05/22/17 Date of Discharge: 05/26/17 - Primary Discharge Diagnosis Active and Suspected Problems Acute kidney injury superimposed on CKD stage IV (Acute) Macrocytic anemia with vitamin B12 deficiency (Acute) Hypertensive emergency (Acute) with acute diastolic CHF Diastolic congestive heart failure (Acute) - Secondary Discharge Diagnosis Chronic Problems Generalized weakness (Chronic) Dementia (Chronic) Hypertension (Chronic) Kidney disease, chronic, 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 There are NO effusions or pneumothoraces. Heart is borderline enlarged. Electronically Signed: Arnulfo Marshall MD at 5:29 EST , Service support , Renal Ultrasound 05/22/17 18:26 IMPRESSION: Right renal sub-2 cm central cyst with otherwise no evidence of acute renal process. Mild right renal atrophic changes. Electronically Signed: Mainor Sabillon DO at 0:01 EST , Service support , Chest X-Ray 05/23/17 06:16 IMPRESSION: The CHF has improved. Mild residual changes persist. Electronically Signed: Denilson Scott MD at 8:54 EST Tel [phone], Service support , Clinical Impression(s) from Imaging Studies Chest X-Ray 05/22/17 04:29 IMPRESSION: There is bilateral perihilar pulmonary edema. There are NO effusions or pneumothoraces. Heart is borderline enlarged. Electronically Signed: Arnulfo Marshall MD at 5:29 EST , Service support , Renal Ultrasound 05/22/17 18:26 IMPRESSION: Right renal sub-2 cm central cyst with otherwise no evidence of acute renal process. Mild right renal atrophic changes. Electronically Signed: Mainor Sabillon DO at 0:01 EST , Service support , Chest X-Ray 05/23/17 06:16 IMPRESSION: The CHF has improved. Mild residual changes persist. Electronically Signed: Denilson Scott MD at 8:54 EST Tel [phone], Service support , Laboratory Results - last 24 hr 05/25/17 05/25/17 05/26/17 17:08 21:30 05:24 WBC 5.2 RBC 3.29 L Hgb 10.6 L Hct 34.0 L MCV 103.3 H MCH 32.2 H MCHC 31.2 L RDW 14.3 RDW Differential 52.4 H Plt Count 134 L MPV 11.0 Sodium Potassium Chloride Carbon Dioxide BUN Creatinine Estim Creat Clear Calc Est GFR (MDRD) Af Amer Est GFR (MDRD) Non-Af BUN/Creatinine Ratio Glucose Calcium Phosphorus Albumin POC Glucose 88 144 H 05/26/17 05/26/17 05/26/17 05:24 06:47 11:56 WBC RBC Hgb Hct MCV MCH MCHC RDW RDW Differential Plt Count MPV Sodium 140 Potassium 5.1 Chloride 105 Carbon Dioxide 27.0 BUN 53 H Creatinine 3.68 H Estim Creat Clear Calc 14.45 Est GFR (MDRD) Af Amer 21 L Est GFR (MDRD) Non-Af 17 L BUN/Creatinine Ratio 14.4 Glucose 95 Calcium 9.3 Phosphorus 4.0 Albumin 2.8 L POC Glucose 82 101 Microbiology 05/22/17 07:55 Mucosa - Nose Influenza Types A,B Direct FA (ROBERTO) - Final negative ECHO with mild LV hypertrophy and a 55-60% EF Dr. Nicole Hawk-nephrology [facility] Operations: None Procedures: 2-D Echocardiogram Summary of Care Provided: Patient is an 81-year-old male with a past medical history of severe cardiomyopathy, hypertension, stage IV chronic renal failure, hyperlipidemia and CAD who presented to the emergency room at [facility] on 05/22/2017 complaining of increasing shortness of breath. He additionally complained of lightheadedness and dizziness. Chest x-ray was reported as bilateral pulmonary edema however the BNP was only 166 and he has known stage IV chronic renal failure. He was admitted to the hospital with a diagnosis of acute systolic congestive heart failure. He once again refused cardiac catheterization. He previously has seen Dr. Nicole Hawk but not for several years. He was recently started on lisinopril for hypertension. Blood pressure at presentation to the emergency room was 190/73. He was 96% saturated on room air. On physical exam he had mild crackles in the bases of both lungs. There was no wheezing. He had some ankle edema and edema over the dorsum of both feet. Dr. Rosario was consulted and recommended diuresis and addition of Hydralazine and Imdur to the drug regimen to control BP. He recommended a ECHO. ECHO showed a 55-60% EF with wall motion abnormalities and mild LVH. The SUSANA was held at admission due to worsening Renal failure and increasing BP. He diuresed 2,631 CC and the creat increased to 3.85 from 2.87 at admission. I suspect the CHF at admission was due to the uncontrolled HTN and not due to volume overload. Diuretics were held and he was encouraged to drink more water. On 05/26 the creat had decreased to 3.68 and he was not discharged on Lasix. He will stick to a 1500 cc fluid restriction. Discussion was held with the pt and his daughters about HD. At this point they have not made a final decision but, are leaning against HD. They have an appt scheduled with Dr. Hawk on 05/29 to revisit this. K was 5.1 on the day of admission and a potassium restriction was added to the drug regimen. He was discharged to [place] on 05/26. He is getting to be too much to handle for his dtr at home and I suspect at some point in the near future he will require an ECF. If he declines HD a palliative/hospice referral may be prudent. PE at DC: Alert, pleasant and cooperative, confused Lungs - coarse crackles in the bases that are chronic and due to scarring, not due to CHF Heart - regular with bradycardia, no gallop and no rub no peripheral edema This note was generated with [employer] dictation software. It may contain incorrect words, spelling, and punctuation that were not noted in checking the note before signing. Home Medications: Medications to take at Discharge Simvastatin 40 mg PO QHS 08/02/14 Aspirin [Aspirin, Baby] 81 mg PO DAILY@0800 11/25/14 Amiodarone HCl [Cordarone] 200 mg PO DAILY 01/20/16 Ascorbic Acid [Vitamin C] 250 mg PO DAILY 03/09/17 Cholecalciferol (Vitamin D3) [Vitamin D3] 4,000 unit PO DAILY 03/09/17 Christina Menard B.lactis [Probiotic] 1 each PO DAILY 03/09/17 Ferrous Sulfate 2 tab PO DAILY 04/27/17 Pantoprazole Sodium [Protonix] 40 mg PO DAILY 04/27/17 Acetaminophen [Tylenol Tablet] 650 mg PO Q6H PRN PRN tablet 05/26/17 Calcitriol [Rocaltrol] 0.25 mcg PO DAILY capsule 05/26/17 Cyanocobalamin [Vitamin B12] 1,000 mcg PO DAILY@0800 tablet 05/26/17 HydrALAZINE [Apresoline] 25 mg PO TID tablet 05/26/17 Insulin Aspart [Novolog Flexpen] 3 units SC TIDAC flexpen 05/26/17 Insulin Detemir [Levemir FlexPen] 18 units SC QHS insuln.pen 05/26/17 Isosorbide Mononitrate [Imdur] 30 mg PO DAILY tablet 05/26/17 Trazodone HCl [Desyrel] 50 mg PO QHS PRN tablet 05/26/17 Primary Care Physician: Ambrocio Lieberman MD [Primary Care Provider] - Please follow up with your Primary Care Physician in: following DC from [facility] Please Follow Up With: Nicole Hawk DO When: may 29 at 10 AM Disposition: Residential facility [facility] Patient Condition:: Stable Meaningful Use Info Meaningful Use Diagnoses (Choose all that apply): CHF - CHF SUSANA/ARB ordered at discharge?: No Reason SUSANA/ARB not ordered?: Worsening renal dysfunctn Documented LVEF (%): 55 Code Visit Inpatient E&M: 48457 Disch Hosp
--- NOTE | 2017-05-26 12:35 | DS.PCM_ITS ---
Discharge Date and Diagnosis - Problem List Patient Problems: Active and Suspected Problems Acute kidney injury superimposed on CKD (Acute) Macrocytic anemia with vitamin B12 deficiency (Acute) Hypertensive emergency (Acute) Diastolic congestive heart failure (Acute) Diabetes mellitus type 2 in nonobese (Acute) Date of Admission: 05/22/17 Date of Discharge: 05/26/17 - Primary Discharge Diagnosis Active and Suspected Problems Acute kidney injury superimposed on CKD stage IV (Acute) Macrocytic anemia with vitamin B12 deficiency (Acute) Hypertensive emergency (Acute) with acute diastolic CHF Diastolic congestive heart failure (Acute) - Secondary Discharge Diagnosis Chronic Problems Generalized weakness (Chronic) Dementia (Chronic) Hypertension (Chronic) Kidney disease, chronic, 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 There are NO effusions or pneumothoraces. Heart is borderline enlarged. Electronically Signed: Arnulfo Marshall MD at 5:29 EST , Service support , Renal Ultrasound 05/22/17 18:26 IMPRESSION: Right renal sub-2 cm central cyst with otherwise no evidence of acute renal process. Mild right renal atrophic changes. Electronically Signed: Mainor Sabillon DO at 0:01 EST , Service support , Chest X-Ray 05/23/17 06:16 IMPRESSION: The CHF has improved. Mild residual changes persist. Electronically Signed: Denilson Scott MD at 8:54 EST Tel [phone], Service support , Clinical Impression(s) from Imaging Studies Chest X-Ray 05/22/17 04:29 IMPRESSION: There is bilateral perihilar pulmonary edema. There are NO effusions or pneumothoraces. Heart is borderline enlarged. Electronically Signed: Arnulfo Marshall MD at 5:29 EST , Service support , Renal Ultrasound 05/22/17 18:26 IMPRESSION: Right renal sub-2 cm central cyst with otherwise no evidence of acute renal process. Mild right renal atrophic changes. Electronically Signed: Mainor Sabillon DO at 0:01 EST , Service support , Chest X-Ray 05/23/17 06:16 IMPRESSION: The CHF has improved. Mild residual changes persist. Electronically Signed: Denilson Scott MD at 8:54 EST Tel [phone], Service support , Laboratory Results - last 24 hr 05/25/17 05/25/17 05/26/17 17:08 21:30 05:24 WBC 5.2 RBC 3.29 L Hgb 10.6 L Hct 34.0 L MCV 103.3 H MCH 32.2 H MCHC 31.2 L RDW 14.3 RDW Differential 52.4 H Plt Count 134 L MPV 11.0 Sodium Potassium Chloride Carbon Dioxide BUN Creatinine Estim Creat Clear Calc Est GFR (MDRD) Af Amer Est GFR (MDRD) Non-Af BUN/Creatinine Ratio Glucose Calcium Phosphorus Albumin POC Glucose 88 144 H 05/26/17 05/26/17 05/26/17 05:24 06:47 11:56 WBC RBC Hgb Hct MCV MCH MCHC RDW RDW Differential Plt Count MPV Sodium 140 Potassium 5.1 Chloride 105 Carbon Dioxide 27.0 BUN 53 H Creatinine 3.68 H Estim Creat Clear Calc 14.45 Est GFR (MDRD) Af Amer 21 L Est GFR (MDRD) Non-Af 17 L BUN/Creatinine Ratio 14.4 Glucose 95 Calcium 9.3 Phosphorus 4.0 Albumin 2.8 L POC Glucose 82 101 Microbiology 05/22/17 07:55 Mucosa - Nose Influenza Types A,B Direct FA (ROBERTO) - Final negative ECHO with mild LV hypertrophy and a 55-60% EF Dr. Nicole Hawk-nephrology [facility] Operations: None Procedures: 2-D Echocardiogram Summary of Care Provided: Patient is an 81-year-old male with a past medical history of severe cardiomyopathy, hypertension, stage IV chronic renal failure, hyperlipidemia and CAD who presented to the emergency room at [facility] on complaining of increasing shortness of breath. He additionally complained of lightheadedness and dizziness. Chest x-ray was reported as bilateral pulmonary edema however the BNP was only 166 and he has known stage IV chronic renal failure. He was admitted to the hospital with a diagnosis of acute systolic congestive heart failure. He once again refused cardiac catheterization. He previously has seen Dr. Nicole Hawk but not for several years. He was recently started on lisinopril for hypertension. Blood pressure at presentation to the emergency room was 190/73. He was 96% saturated on room air. On physical exam he had mild crackles in the bases of both lungs. There was no wheezing. He had some ankle edema and edema over the dorsum of both feet. Dr. Rosario was consulted and recommended diuresis and addition of Hydralazine and Imdur to the drug regimen to control BP. He recommended a ECHO. ECHO showed a 55-60% EF with wall motion abnormalities and mild LVH. The SUSANA was held at admission due to worsening Renal failure and increasing BP. He diuresed 2,631 CC and the creat increased to 3.85 from 2.87 at admission. I suspect the CHF at admission was due to the uncontrolled HTN and not due to volume overload. Diuretics were held and he was encouraged to drink more water. On 05/26 the creat had decreased to 3.68 and he was not discharged on Lasix. He will stick to a 1500 cc fluid restriction. Discussion was held with the pt and his daughters about HD. At this point they have not made a final decision but, are leaning against HD. They have an appt scheduled with Dr. Hawk on 05/29 to revisit this. K was 5.1 on the day of admission and a potassium restriction was added to the drug regimen. He was discharged to [place] on 05/26. He is getting to be too much to handle for his dtr at home and I suspect at some point in the near future he will require an ECF. If he declines HD a palliative/hospice referral may be prudent. PE at DC: Alert, pleasant and cooperative, confused Lungs - coarse crackles in the bases that are chronic and due to scarring, not due to CHF Heart - regular with bradycardia, no gallop and no rub no peripheral edema This note was generated with [employer] dictation software. It may contain incorrect words, spelling, and punctuation that were not noted in checking the note before signing. Home Medications: Medications to take at Discharge Simvastatin 40 mg PO QHS 08/02/14 Aspirin [Aspirin, Baby] 81 mg PO DAILY@0800 11/25/14 Amiodarone HCl [Cordarone] 200 mg PO DAILY 01/20/16 Ascorbic Acid [Vitamin C] 250 mg PO DAILY 03/09/17 Cholecalciferol (Vitamin D3) [Vitamin D3] 4,000 unit PO DAILY 03/09/17 Christina Menard B.lactis [Probiotic] 1 each PO DAILY 03/09/17 Ferrous Sulfate 2 tab PO DAILY 04/27/17 Pantoprazole Sodium [Protonix] 40 mg PO DAILY 04/27/17 Acetaminophen [Tylenol Tablet] 650 mg PO Q6H PRN PRN tablet 05/26/17 Calcitriol [Rocaltrol] 0.25 mcg PO DAILY capsule 05/26/17 Cyanocobalamin [Vitamin B12] 1,000 mcg PO DAILY@0800 tablet 05/26/17 HydrALAZINE [Apresoline] 25 mg PO TID tablet 05/26/17 Insulin Aspart [Novolog Flexpen] 3 units SC TIDAC flexpen 05/26/17 Insulin Detemir [Levemir FlexPen] 18 units SC QHS insuln.pen 05/26/17 Isosorbide Mononitrate [Imdur] 30 mg PO DAILY tablet 05/26/17 Trazodone HCl [Desyrel] 50 mg PO QHS PRN tablet 05/26/17 Primary Care Physician: Ambrocio Lieberman MD [Primary Care Provider] - Please follow up with your Primary Care Physician in: following DC from [facility] Please Follow Up With: iNcole Hawk DO When: may 29 at 10 AM Disposition: [facility] facility [facility] Patient Condition:: Stable Meaningful Use Info Meaningful Use Diagnoses (Choose all that apply): CHF - CHF SUSANA/ARB ordered at discharge?: No Reason SUSANA/ARB not ordered?: Worsening renal dysfunctn Documented LVEF (%): 55 Code Visit Inpatient E&M: [id number] Disch Hosp
--- NOTE | 2017-05-26 13:40 | NURSING ---
CALLED REPORT TO [facility] - SPOKE WITH BULL BAHENA NO QUESTIONS
--- NOTE | 2017-05-26 16:17 | NURSING ---
REVIEWED AND AGREED W/ Joe COE'S CHARTING.
== END 2017-05-26 15:40 | disposition skilled nursing facility (03) | DRG 291 ==
LOC: ED 06:21 → PCU 06:29
PROVIDERS: Internal Medicine Cardiovascular Disease; Internal Medicine Nephrology; Physician Assistant; Admitting Provider Family Medicine; Emergency Provider Emergency Medicine; Family Provider Family Medicine; PCP Family Medicine; Visit Provider Internal Medicine
DX: I13.0 Hypertensive heart and chronic kidney disease with heart failure and stage 1 through stage 4 chronic kidney disease, or unspecified chronic kidney disease (principal); I50.31 Acute diastolic (congestive) heart failure; E11.22 Type 2 diabetes mellitus with diabetic chronic kidney disease; N17.9 Acute kidney failure, unspecified; N18.4 Chronic kidney disease, stage 4 (severe); N25.81 Secondary hyperparathyroidism of renal origin; I42.9 Cardiomyopathy, unspecified; I16.1 Hypertensive emergency; D53.9 Nutritional anemia, unspecified; I25.2 Old myocardial infarction; E53.8 Deficiency of other specified B group vitamins; I25.10 Atherosclerotic heart disease of native coronary artery without angina pectoris; R42 Dizziness and giddiness; E78.5 Hyperlipidemia, unspecified; F03.90 Unspecified dementia, unspecified severity, without behavioral disturbance, psychotic disturbance, mood disturbance, and anxiety; R53.1 Weakness; Z79.82 Long term (current) use of aspirin; Z79.899 Other long term (current) drug therapy; Z79.4 Long term (current) use of insulin
CPT/HCPCS: 36415; 71046; 76770; 80048; 80053; 80061; 80069; 80076; 81001; 81002; 82306; 82570; 82607; 82746; 82962; 83036; 83735; 83880; 83970; 84156; 84443; 84484; 85025; 85027; 87804; 93005; 93306; 94640; 97110; 97116; 97166; 97530; 97535; 99285; A4216; J1940